=== PATIENT | male | born 1960 | race Caucasian/White ===

== ENCOUNTER 2021-04-08 01:35 | Emergency (ER) | payer MEDICAID, SELFPAY ==
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
[2021-04-08 02:04] VITALS: BP 159/80; PULSE 105; O2SAT 98; BMI 31.8
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
[2021-04-08 02:10] VITALS: BP 140/64; PULSE 91; RESP 18; TEMP 36.8; O2SAT 98
== END 2021-04-08 04:34 | disposition home or self-care (01) ==
PROVIDERS: Emergency Provider Internal Medicine; PCP Family Medicine
DX: Z04.89 Encounter for examination and observation for other specified reasons (principal); M79.642 Pain in left hand; M79.89 Other specified soft tissue disorders; R04.0 Epistaxis
CPT/HCPCS: 70450; 70486; 73120; 99284

== ENCOUNTER 2023-07-30 03:51 | Inpatient (IN) | payer OTHER, SELFPAY ==
[2023-07-30] VITALS (11 sets, daily range): BP systolic 94–143; BP diastolic 41–68; PULSE 57–73; RESP 16–20; TEMP 36.3–36.7; O2SAT 93–97; BMI 31.9
--- NOTE | ~2023-07-30 | CT_ITS ---
EXAMINATION: CT HEAD WITHOUT CONTRAST CT CERVICAL SPINE WITHOUT CONTRAST. CLINICAL INFORMATION: Trauma. Pain. COMPARISON: None available. TECHNIQUE: Contiguous axial imaging was performed through the head and cervical spine without intravenous administration of contrast. Sagittal and coronal reformatted images also This CT examination was performed using dose optimization techniques as appropriate, variously including the following: *Automated exposure control *Adjustment of mA and/or kV according to patient size (this includes techniques or standardized protocols for targeted exams where dose is matched to indication/reason for exam; i.e. extremities or head) *Use of iterative reconstruction technique DLP: 1036 mGy-cm FINDINGS: The lateral, third and fourth ventricles are normally outlined. The cortical sulci and basal cisterns are normally outlined as well. There is no acute territorial defect, hemorrhage or midline shift. The extra-axial spaces are unremarkable. Calvarium/scalp: Intact. There is right infraorbital/right cheek soft tissue swelling. Maxillofacial sinuses and mastoids: Clear as visualized. Cervical spine: The alignment is normal. There is moderate C4-C5 disc degenerative change and mild disc degenerative change throughout the remaining cervical spine with loss of disc space, endplate change and posterior osteophytes associated with mild to moderate diffuse facet osteoarthritic hypertrophic change with multilevel mild spinal canal and multilevel [id number] neuroforaminal narrowing. No fracture is seen. Soft tissues are unremarkable. The visualized upper lung sibley are clear. CT/CT cervical spine wo IV con IMPRESSION: 1. No acute intracranial abnormality. 2. No acute fracture or malalignment of the cervical spine. Multilevel degenerative changes of the cervical spine. 3. Right infraorbital/right cheek soft tissue swelling
--- NOTE | ~2023-07-30 | CT_ITS ---
EXAMINATION: CT HEAD WITHOUT CONTRAST CT CERVICAL SPINE WITHOUT CONTRAST. CLINICAL INFORMATION: Trauma. Pain. COMPARISON: None available. TECHNIQUE: Contiguous axial imaging was performed through the head and cervical spine without intravenous administration of contrast. Sagittal and coronal reformatted images also This CT examination was performed using dose optimization techniques as appropriate, variously including the following: *Automated exposure control *Adjustment of mA and/or kV according to patient size (this includes techniques or standardized protocols for targeted exams where dose is matched to indication/reason for exam; i.e. extremities or head) *Use of iterative reconstruction technique DLP: 1036 mGy-cm FINDINGS: The lateral, third and fourth ventricles are normally outlined. The cortical sulci and basal cisterns are normally outlined as well. There is no acute territorial defect, hemorrhage or midline shift. The extra-axial spaces are unremarkable. Calvarium/scalp: Intact. There is right infraorbital/right cheek soft tissue swelling. Maxillofacial sinuses and mastoids: Clear as visualized. Cervical spine: The alignment is normal. There is moderate C4-C5 disc degenerative change and mild disc degenerative change throughout the remaining cervical spine with loss of disc space, endplate change and posterior osteophytes associated with mild to moderate diffuse facet osteoarthritic hypertrophic change with multilevel mild spinal canal and multilevel [id number] neuroforaminal narrowing. No fracture is seen. Soft tissues are unremarkable. The visualized upper lung sibley are clear. CT/CT head/brain wo IV con IMPRESSION: 1. No acute intracranial abnormality. 2. No acute fracture or malalignment of the cervical spine. Multilevel degenerative changes of the cervical spine. 3. Right infraorbital/right cheek soft tissue swelling
--- NOTE | ~2023-07-30 | XR_ITS ---
EXAMINATION: XR HAND, RIGHT CLINICAL INFORMATION: Trauma. Pain. COMPARISON: None available. TECHNIQUE: PA, lateral, and oblique views of the right hand. FINDINGS: The bone mineralization is within normal limits. There is a displaced fracture through the proximal phalanx of the fifth digit. There appears to be bandaging along the proximal phalanx fifth digit. There is mild soft tissue swelling along the dorsum of the hand. XR/XR hand RT min 3V IMPRESSION: 1. Displaced fracture through the proximal phalanx of the fifth digit.
--- NOTE | ~2023-07-30 | FL_ITS ---
EXAMINATION: XR FLUOROSCOPY WITH IMAGES CLINICAL INFORMATION: Right hand ORIF COMPARISON: Right hand 07/30/2023 TECHNIQUE: Fluoroscopy Supervised By: Dr. Hernandez. Fluoroscopy Time: 57.74 seconds. Cumulative Dose: 1.1424 mGy. DAP: 0.0690 Gycm2. Images: 1. FINDINGS: Lateral view of the right hand demonstrate a K wire through the fifth finger of the right hand. Please see Dr. Hernandez's procedure note for full details. FL/FL guidance in OR IMPRESSION: Intraoperative fluoroscopic guidance was provided for ORIF of right fifth finger fracture.
--- NOTE | ~2023-07-30 | FL_ITS ---
EXAMINATION: XR FLUOROSCOPY WITH IMAGES CLINICAL INFORMATION: Right hand pinning. COMPARISON: None available. TECHNIQUE: Fluoroscopy Supervised By: Dr. Dowell. Fluoroscopy Time: 70.73 seconds. Cumulative Dose: 1.856 mGy. DAP: 0.112 Gycm2. Images: 12. FINDINGS: Pins are present through the fifth digit with a comminuted intra-articular fracture involving the proximal phalanx and the MCP joint. FL/FL guidance in OR IMPRESSION: Fluoroscopy and spot films provided during pinning of the fifth digit.
--- NOTE | 2023-07-30 04:06 | PC.NURSE ---
Dr. Mercedes to bedside.
[2023-07-30] MEDS: 0.9 % Sodium Chloride 1,000 ML 999 ML IV (04:10)
[2023-07-30 04:13] LABS: MANUAL DIFF FLAG NO
[2023-07-30 04:18] LABS: Basophils Absolute Auto 0.1 X10*3/uL (0.0-0.2); Basophils Percent Auto 0.6 % (0-2); Eosinophils Absolute Auto 0.2 X10*3/uL (0.0-0.4); Hemoglobin 13.2 g/dl (14.0-18.0); Imm Gran Abs Auto 0.04 X10*3/uL (0.00-0.03); Imm Gran Pct Auto 0.5 % (0.0-0.4); Lymphocytes Absolute Auto 2.7 X10*3/uL (1.2-4.9); Lymphocytes Percent Auto 33.8 % (20-40); Mean Corpuscular HGB Conc 36.7 g/dl (31.0-36.0); Mean Corpuscular Volume 87.2 fL (80.0-98.0); Monocytes Absolute Auto 0.6 X10*3/uL (0.1-1.2); Neutrophils Absolute Auto 4.4 x10*3/uL (2.0-8.3); Neutrophils Percent Auto 55.1 % (45-73); Platelet Count 112 X10*3/uL (160-400); Red Blood Count 4.13 X10*6/uL (4.60-5.80); Red Cell Distribution Width 15.5 % (11.0-16.0); White Blood Count 8.1 X10*3/uL (4.8-10.8)
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
--- NOTE | 2023-07-30 04:32 | PC.NURSE ---
pt reports last tetanus shot 2 years ago.
[2023-07-30 04:38] LABS: Alanine Aminotransferase 30 U/L (0-40); Albumin Level 3.7 g/dL (3.5-5.0); Alkaline Phosphatase 76 U/L (39-117); Anion Gap 15 (12-20); Aspartate Amino Transferase 43 U/L (5-37); Bilirubin Total 0.8 mg/dL (0.0-1.0); Blood Urea Nitrogen 10 mg/dL (9-16); Calcium 8.3 mg/dL (8.4-10.2); Carbon Dioxide 21 mmol/L (22-29); Chloride 98 mmol/L (96-108); Creatinine Clr Calc Pharmacy 136.1; Estimated Glomerular Filt Rate > 60; Glucose Random 107 mg/dL (60-115); Magnesium 1.9 mg/dL (1.6-2.6); Potassium 3.8 mmol/L (3.3-5.1); Sodium 130 mmol/L (135-145); Total Protein 6.7 g/dL (6.5-8.0)
[2023-07-30] MEDS: Piperacillin Sodium/Tazobactam 3.375 GM in 0.9 % Sodium Chloride 50 ML IV ×3 (04:54→22:39)
--- NOTE | 2023-07-30 04:56 | PC.NURSE ---
no blood cultures per md. ivf and abx infusing per mar. plan for surgical consult in AM. pt resting comfortably in stretcher. c-collar in place awaiting imaging results. resp even and unlabored. axox4. call aguilar within reach.
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
--- NOTE | 2023-07-30 07:44 | PC.NURSE ---
Pt cleaned and changed over to best of RNs ability.
[2023-07-30] MEDS: Morphine Sulfate 2 MG/ML CARTRIDGE 1 MG IVPUSH (07:50)
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
--- NOTE | 2023-07-30 08:00 | PC.NURSE ---
Pt denies daily alcohol use, denies any hx of alcohol withdrawals or seizures. Had few beers last night/ early this morning, unknown how many.
[2023-07-30] MEDS: Lactated Ringers 1,000 ML 100 ML IVCONT ×2 (08:15→16:17)
--- NOTE | 2023-07-30 10:36 | PC.NURSE ---
Pt significant other s number [phone] name is Shanelle
[2023-07-30] MEDS: oxyCODONE HCl Immed Release 5 MG TABLET PO (12:13)
--- NOTE | 2023-07-30 12:16 | PC.NURSE ---
Pt medicated per PRN APR for pain in right hand. Denies other new complaints
--- NOTE | 2023-07-30 12:52 | PC.NURSE ---
Report given to BEARING RING ASSEMBLER
--- NOTE | 2023-07-30 13:06 | P.CONAN_ITS ---
[facility] Active Problems Active Problems: All Active Problems Fracture of finger of right hand (Acute) Laceration (Acute) Family History Family history of problems with anesthesia: No Surgical History History of Problems with Anesthesia: No Social History Social History Alcohol intake: current Alcohol intake frequency: a few times a week Smoked in Last 30 Days: No Use of substances other than those prescribed or required for medical reasons: No Advance Directives: No Advance Directives Information Provided: No Meds Allergies Allergy/AdvReac Type Severity Reaction Status Date / Time No Known Allergies Allergy Verified 07/30/23 04:04 Active Medications: Current Medications Acetaminophen (Acetaminophen 325 Mg Tablet) 650 mg PO Q6H PRN PRN Reason: Pain, Mild (Pain Scale 1-3), fever or headache Lactated Ringer's (Lr) 1,000 mls @ 100 mls/hr IVCONT .Q10H [facility] Last Admin: 07/30/23 08:15 Dose: 100 mls/hr Magnesium Hydroxide (Milk Of Magnesia 30 Ml Oral.Susp) 30 ml PO DAILY PRN PRN Reason: Constipation Oxycodone HCl (Oxycodone Hcl Immed Release 5 Mg Tablet) 5 mg PO Q4H PRN PRN Reason: Pain, Moderate(Pain Scale 4-6) Last Admin: 07/30/23 12:13 Dose: 5 mg Sodium Chloride (0.9 % Sodium Chloride Flush 3 Ml Syringe) 3 ml IVFLUSH QSH[facility]HI [facility] Home Medications ?Medication ?Instructions ?Recorded ?Confirmed ?Last Taken ?Type amlodipine 5 mg tablet 5 mg PO DAILY 07/30/23 07/30/23 07/27/23 History aspirin 81 mg tablet,delayed 81 mg PO DAILY 07/30/23 07/30/23 07/27/23 History release fluoxetine 20 mg capsule 20 mg PO DAILY 07/30/23 07/30/23 07/27/23 History gabapentin 100 mg capsule 100 mg PO BID 07/30/23 07/30/23 07/27/23 History magnesium 200 mg tablet 200 mg PO DAILY 07/30/23 07/30/23 07/27/23 History milk thistle 150 mg capsule 300 mg PO DAILY 07/30/23 07/30/23 07/27/23 History multivitamin 1 tab PO DAILY 06/07/30/23 07/27/23 History vitamin B complex 1 cap PO DAILY PRN energy 07/30/23 07/30/23 07/27/23 History Exam Height,Weight and Vital Signs: Height 6 ft Weight 106.7 kg Last Vital Signs Temp 98.1 F 07/30/23 12:04 Pulse 60 07/30/23 12:04 Resp 18 07/30/23 12:04 BP 118/58 L 07/30/23 12:04 Pulse Ox 96 07/30/23 12:04 O2 Del Method Room Air 07/30/23 12:04 Pertinent Lab Results Pertinent Lab Results: oLaboratory Tests 07/30/23 04:09 WBC 8.1 RBC 4.13 L Hgb 13.2 L Hct 36.0 L MCV 87.2 MCH 32.0 MCHC 36.7 H RDW 15.5 Plt Count 112 L MPV 11.0 Immature Gran % (Auto) 0.5 H Neut % (Auto) 55.1 Lymph % (Auto) 33.8 [place] % (Auto) 8.0 Eos % (Auto) 2.0 Baso % (Auto) 0.6 Lymph # (Auto) 2.7 [place] # (Auto) 0.6 Eos # (Auto) 0.2 Baso # (Auto) 0.1 Abs Immat Gran (auto) 0.04 H Absolute Neuts (auto) 4.4 Absolute Nucleated RBC 0.000 Nucleated RBC % (auto) 0.0 Sodium 130 L Potassium 3.8 Chloride 98 Carbon Dioxide 21 L Anion Gap 15 BUN 10 Creatinine 0.71 Estim Creat Clear Calc 136.1 Estimated GFR > 60 Random Glucose 107 Calcium 8.3 L Magnesium 1.9 Total Bilirubin 0.8 AST 43 H ALT 30 Alkaline Phosphatase 76 Total Protein 6.7 Albumin 3.7 Airway Mallampati Class: II TM Dist: >3cm Neck ROM: Full Assessment and Plan Assessment Anesthesia Assessment: Anesthesia Plan Discussed and Chart Reviewed Final Anesthetic Review Family History of Problems with Anesthesia: No History of Problems with Anesthesia: No NPO: Yes ASA Class: II and Emergency Final Preanesthetic Review: No Changes in Pt Med Stat, Meds/Allgs Chart Reviewed, Consent Obtained/Reviewed and Anes Risks/Benef Reviewed Patient Risk: Intermediate Procedure Risk: Low Anesthetic Plan Anesthetic Plan: GA Disposition: Standard PACU
--- NOTE | 2023-07-30 13:06 | PC.NURSE ---
Pt sent to OR
--- NOTE | 2023-07-30 13:41 | MHC.SHP ---
Pre-Procedural Eval Section A - 24 Hr Update-Section A only Date of Service: 07/30/23 The patient is an INPATIENT: No Changes since office visit: No Cold of Flu in the past 2 weeks, No New Medical Problems, No Changes in Medication and No Patient answered all questions The patient has been examined within 24 hours of the surgical procedure. The History & Physical has been completed within 30 days and I have reviewed it.: Yes Section B - Complete if H&P > 30 days Chief Complaint: Right little finger open fracture Allergies: Allergies Allergy/AdvReac Type Severity Reaction Status Date / Time No Known Allergies Allergy Verified 07/30/23 04:04 Plan I have reviewed the history and physical and performed a pertinent physical examination on my patient. No changes have occurred unless specified. Time Spent With Patient Time: Total time managing care of this patient today ____ minutes.
--- NOTE | 2023-07-30 15:08 | P.BOP_ITS ---
Brief Operative Note Date of Service: 07/30/23 Pre-op diagnosis: open fracture right small finger proximal phalanx Post-op diagnosis: same Procedure: irrigation and debridement right small finger percutaneous pinning right small finger Implants: 0.45 k wire Surgeon: Balaji Hernandez MD Anesthesia: GETA and local Was an Suction Drum Drier Operator used for this Procedure?: Yes Suction Drum Drier Operator: Jeny Alfaro Estimated blood loss (mL): 25 IV fluids (mL): 750 Pathology: none sent Condition: stable Disposition: PACU
[2023-07-30] MEDS: 0.9 % Sodium Chloride Flush 3 ML SYRINGE IVFLUSH (16:18)
--- NOTE | 2023-07-30 16:19 | PHA.PROG ---
Admission Date/Time: July 30, 2023 08:05 Indication: Weight in k.7 kg Adjusted body weight in K.24 [place] body weight in K.6 Obesity Dosing Indication % IBW: Serum Creatinine - Last 168 Hours 07/30/23 04:09 Creatinine 0.71 Estimated CrCl and GFR - Last 168 Hours 07/30/23 04:09 Estim Creat Clear Calc 136.1 Estimated GFR > 60 Vancomycin Loading Dose: 2000 MG Current Vancomycin Dosing Regimen: 1500 MG Q12H Vancomycin Monitoring using AUC goal of 400 - 600 range with trough as surrogate marker: PREDICTED AUC 555 Date and Time for next Vancomycin Level to be drawn: 07/31/23 @ 1500 Pharmacist Comments on Vancomycin Plan: PATIENT OBESE, TOGGLED BETWEEN BOTH OBESE AND MODIFIED MODEL. Vancomycin dosing will take advantage of [employer] as a clinical decision support tool that uses Bayesian modeling to calculate individual patient's pharmacokinetic parameters and forecast the patient's drug concentration time course with the target goal AUC 24 range of 400 - 600 mg/L/hr.
[2023-07-30] MEDS: vancomycin/NS 2,000 MG/500 ML PLAST..BAG 250 MG IV (17:14)
[2023-07-30] MEDS: Gabapentin 100 MG CAPSULE PO (22:28)
[2023-07-31 03:16] VITALS: BP 169/74; PULSE 56; RESP 16; TEMP 36.2; O2SAT 96
[2023-07-31] MEDS: Piperacillin Sodium/Tazobactam 3.375 GM in 0.9 % Sodium Chloride 50 ML IV ×4 (05:01→22:53)
[2023-07-31] MEDS: Acetaminophen 325 MG TABLET 650 MG PO ×3 (05:35→19:24)
[2023-07-31] MEDS: vancomycin HCL 1,500 MG in 0.9 % Sodium Chloride 500 ML 333.33 MG IV (05:44)
[2023-07-31 05:57] LABS: MANUAL DIFF FLAG NO
[2023-07-31 06:10] LABS: Basophils Percent Auto 0.1 % (0-2); Eosinophils Percent Auto 0.1 % (0-4); Hematocrit 37.5 % (42.0-52.0); Imm Gran Abs Auto 0.03 X10*3/uL (0.00-0.03); Imm Gran Pct Auto 0.4 % (0.0-0.4); Lymphocytes Absolute Auto 0.7 X10*3/uL (1.2-4.9); Lymphocytes Percent Auto 10.5 % (20-40); Mean Corpuscular HGB Conc 34.7 g/dl (31.0-36.0); Mean Corpuscular Hemoglobin 30.7 pg (27.0-33.0); Mean Corpuscular Volume 88.7 fL (80.0-98.0); Mean Platelet Volume 11.6 fL (9.4-12.4); Monocytes Absolute Auto 0.6 X10*3/uL (0.1-1.2); Monocytes Percent Auto 8.5 % (2-11); Neutrophils Absolute Auto 5.6 x10*3/uL (2.0-8.3); Neutrophils Percent Auto 80.4 % (45-73); Red Blood Count 4.23 X10*6/uL (4.60-5.80); Red Cell Distribution Width 15.4 % (11.0-16.0)
[2023-07-31 06:11] LABS: Platelet Count 64 X10*3/uL (160-400)
[2023-07-31 06:18] LABS: Anion Gap 10 (12-20); Blood Urea Nitrogen 10 mg/dL (9-16); Calcium 8.6 mg/dL (8.4-10.2); Carbon Dioxide 25 mmol/L (22-29); Chloride 105 mmol/L (96-108); Creatinine Clr Calc Pharmacy 142.1; Estimated Glomerular Filt Rate > 60; Glucose Fasting 124 mg/dL (60-99); Potassium 4.4 mmol/L (3.3-5.1); Sodium 136 mmol/L (135-145)
[2023-07-31 07:41] VITALS: BP 138/64; PULSE 58; RESP 18; TEMP 36.1; O2SAT 96
[2023-07-31] MEDS: Magnesium Oxide 400 MG TABLET PO (08:25)
[2023-07-31] MEDS: amLODIPine Besylate 5 MG TABLET PO (08:25)
[2023-07-31] MEDS: Gabapentin 100 MG CAPSULE PO ×2 (08:25→19:27)
[2023-07-31] MEDS: Multivitamin TABLET 1 TAB PO (08:25)
[2023-07-31] MEDS: FLUoxetine HCl 20 MG CAPSULE PO (08:25)
[2023-07-31] MEDS: Lactated Ringers 1,000 ML 100 ML IVCONT ×2 (08:27→15:36)
--- NOTE | 2023-07-31 09:55 | PM.PNORT ---
Subjective Subjective Date of Service: 07/31/23 Interval history: POD1 s/p right little finger CRPP and I&D Patient is resting in bed comfortably No overnight events Pain is managed No additional complaints Physical Exam Vital Signs: Vital Signs: Last Vital Signs Temp 96.9 F 07/31/23 07:41 Pulse 58 07/31/23 07:41 Resp 18 07/31/23 07:41 BP 138/64 07/31/23 07:41 Pulse Ox 96 07/31/23 07:41 O2 Del Method Room Air 07/31/23 07:41 O2 Flow Rate 2 07/30/23 19:48 BMI result Body Mass Index 31.9 Const: General: cooperative, healthy appearing and no acute distress Resp: Effort & Inspection: normal respiratory effort and able to speak in complete sentences Cardio: Rate: regular rate Peripheral pulses: Peripheral pulses 2+ throughout GI: Palpation (GI): Soft to palpation Skin: Lesions: no lesions Rashes: no rashes Extrem: Other: right hand splint is c/d/i Procedures Date of Service Date of Service: 07/31/23 Progress Note: A&P Assessment and plan (1) Fracture of finger of right hand: Status: Acute Assessment and Plan: Elevate right hand keep splint c/d/i plan for return to OR tomorrow - NPO after midnight (2) Laceration: Status: Acute Time Spent With Patient Time: Total time managing care of this patient today ____ minutes. Quality Stroke Does the patient have a stroke diagnosis?: No VTE Prior VTE?: No VTE Risk Level:: Medical - moderate - high VTE Device Contraindication: N/A - Device Ordered VTE Drug Contraindication: N/A - Med Ordered
[2023-07-31 13:07] VITALS: O2SAT 95
--- NOTE | 2023-07-31 14:28 | MHC.CM.PN ---
Addendum entered by Saida Ghotra 07/31/23 14:40: CORRECTION: CAMILLE WHITTEN IS PTS PCP Original Note: PT REPORTS HE LIVES WITH HIS GIRLFRIEND AND IS INDEPENDENT AT BASELINE PT HAS NO DME AND NO SERVICES HE DOES NOT HAVE A HCP, HE DID ACCEPT THE INFORMATION AND DOCUMENT TO CONSIDER AT A LATER TIME PCP: MEAGAN HODGES DCP: HOME ? [facility] S[facility] WILL TRANSPORT
[2023-07-31 15:42] LABS: Vancomycin Random 9.4 mcg/mL (15-20)
--- NOTE | 2023-07-31 15:52 | HE.PHANOTE ---
RE [facility] Patients level came back this evening at 9.4. Increased dose to 1750 mg Q24H. Will get level for 07/31 @1500 after 2 doses to ensure sfatey vs efficacy. suspected AUC 470, trough 12.7
[2023-07-31 16:00] VITALS: BP 139/95; PULSE 93; RESP 14; TEMP 36.6; O2SAT 93
[2023-07-31] MEDS: vancomycin HCL 1,000 MG, vancomycin HCL 750 MG in 0.9 % Sodium Chloride 500 ML 267.5 MG IV (17:12)
[2023-07-31 19:24] VITALS: BP 163/73; PULSE 68; RESP 16; TEMP 36.5; O2SAT 95
--- NOTE | 2023-07-31 19:32 | PC.NURSE ---
Pt seen sitting on bed alert and oriented, c/o 5/10 right hand pain, + CMS, prn Tylenol 650 mg po requested by pt and given.
[2023-07-31] MEDS: Melatonin 3 MG TABLET 6 MG PO (23:43)
[2023-08-01] VITALS (13 sets, daily range): BP systolic 110–167; BP diastolic 53–75; PULSE 58–70; RESP 12–18; TEMP 36–36.8; O2SAT 92–100
[2023-08-01] MEDS: oxyCODONE HCl Immed Release 5 MG TABLET PO ×2 (00:51→07:45)
--- NOTE | 2023-08-01 03:06 | PC.NURSE ---
Pt seen on bed alert and oriented, pt requested for Melatonin for sleep, Dr. Rutledge was notified, med given with good effect.
[2023-08-01] MEDS: Piperacillin Sodium/Tazobactam 3.375 GM in 0.9 % Sodium Chloride 50 ML IV ×4 (04:43→22:40)
[2023-08-01] MEDS: Lactated Ringers 1,000 ML 100 ML IVCONT (04:47)
[2023-08-01] MEDS: vancomycin HCL 1,000 MG, vancomycin HCL 750 MG in 0.9 % Sodium Chloride 500 ML 267.5 MG IV (05:27)
[2023-08-01 07:25] LABS: Anion Gap 13 (12-20); Blood Urea Nitrogen 8 mg/dL (9-16); Calcium 8.6 mg/dL (8.4-10.2); Carbon Dioxide 23 mmol/L (22-29); Chloride 105 mmol/L (96-108); Creatinine Clr Calc Pharmacy 132.4; Estimated Glomerular Filt Rate > 60; Glucose Fasting 107 mg/dL (60-99); Sodium 137 mmol/L (135-145)
[2023-08-01] MEDS: FLUoxetine HCl 20 MG CAPSULE PO (07:43)
[2023-08-01] MEDS: Magnesium Oxide 400 MG TABLET PO (07:43)
[2023-08-01] MEDS: amLODIPine Besylate 5 MG TABLET PO (07:44)
[2023-08-01] MEDS: Gabapentin 100 MG CAPSULE PO ×2 (07:45→19:58)
[2023-08-01] MEDS: Multivitamin TABLET 1 TAB PO (07:45)
[2023-08-01] MEDS: 0.9 % Sodium Chloride Flush 3 ML SYRINGE IVFLUSH ×3 (07:46→19:58)
--- NOTE | 2023-08-01 08:00 | P.CONAN_ITS ---
HPI - Anesthesia Eval Consult details Narrative: i and d hand PMFSH Active Problems Active Problems: All Active Problems Fracture of finger of right hand (Acute) Laceration (Acute) Family History Family history of problems with anesthesia: No Surgical History History of Problems with Anesthesia: No Social History Social History Household Members: Significant Other Housing: House Do you presently have visiting nurse or other home services: No Alcohol intake: current Alcohol intake frequency: a few times a week Patient Tobacco Use Status: Never used Tobacco Smoked in Last 30 Days: No Use of substances other than those prescribed or required for medical reasons: No Currently Displaying Signs/Symptoms of Drug Intoxication Withdrawal: No Have you been hit, kicked, punched, or otherwise hurt by someone within the past year? If so, by whom?: No Do you feel safe in your current relationship?: Yes Is there a partner from a previous relationship who is making you feel unsafe now?: No Are you made to feel afraid or neglected: No Advance Directives: No Advance Directives Information Provided: No Do you have a plan to hurt others: No Plan Recently lost weight without trying: No Eating poorly because of decreased appetite: No Nutrition Risks: No Nutritional Risk Poor oral hygiene: No service: No Meds Allergies Allergy/AdvReac Type Severity Reaction Status Date / Time No Known Allergies Allergy Verified 07/30/23 04:04 Active Medications: Current Medications Acetaminophen (Acetaminophen 325 Mg Tablet) 650 mg PO Q6H PRN PRN Reason: Pain, Mild (Pain Scale 1-3), fever or headache Last Admin: 07/31/23 19:24 Dose: 650 mg Amlodipine Besylate (Amlodipine Besylate 5 Mg Tablet) 5 mg PO DAILY [facility]; Protocol Last Admin: 08/01/23 07:44 Dose: 5 mg Aspirin (Aspirin Enteric Coated 81 Mg Tablet.Dr) 81 mg PO DAILY [facility] Last Admin: 08/01/23 07:44 Dose: Not Given Fluoxetine HCl (Fluoxetine Hcl 20 Mg Capsule) 20 mg PO DAILY [facility] Last Admin: 08/01/23 07:43 Dose: 20 mg Gabapentin (Gabapentin 100 Mg Capsule) 100 mg PO BID [facility] Last Admin: 08/01/23 07:45 Dose: 100 mg Lactated Ringer's (Lr) 1,000 mls @ 100 mls/hr IVCONT .Q10H [facility] Last Admin: 08/01/23 04:47 Dose: 100 mls/hr Piperacillin Sod/Tazobactam (Sod 3.375 gm/ Sodium Chloride) 50 mls @ 100 mls/hr IV Q6H [facility] Last Infusion: 08/01/23 05:20 Dose: Infused Vancomycin HCl 1,000 mg/Vancomycin HCl 750 mg/ Sodium Chloride 535 mls @ 267.5 mls/hr IV Q12H [facility] Last Infusion: 08/01/23 07:35 Dose: Infused Magnesium Hydroxide (Milk Of Magnesia 30 Ml Oral.Susp) 30 ml PO DAILY PRN PRN Reason: Constipation Magnesium Oxide (Magnesium Oxide 400 Mg Tablet) 400 mg PO DAILY [facility] Last Admin: 08/01/23 07:43 Dose: 400 mg Melatonin (Melatonin 3 Mg Tablet) 6 mg PO BEDTIME PRN PRN Reason: Insomnia Last Admin: 07/31/23 23:43 Dose: 6 mg Multivitamins/Vitamin C (Multivitamin Tablet) 1 tab PO DAILY [facility] Last Admin: 08/01/23 07:45 Dose: 1 tab Oxycodone HCl (Oxycodone Hcl Immed Release 5 Mg Tablet) 5 mg PO Q4H PRN PRN Reason: Pain, Moderate(Pain Scale 4-6) Last Admin: 08/01/23 07:45 Dose: 5 mg Pharmacy Consult (Consult Rx Vancomycin Dosing) 1 each MISCELLANE DAILY PRN PRN Reason: Consult order Sodium Chloride (0.9 % Sodium Chloride Flush 3 Ml Syringe) 3 ml IVFLUSH QSHIFT [facility] Last Admin: 08/01/23 07:46 Dose: 3 ml Home Medications ?Medication ?Instructions ?Recorded ?Confirmed ?Last Taken ?Type amlodipine 5 mg tablet 5 mg PO DAILY 07/30/23 07/30/23 07/27/23 History aspirin 81 mg tablet,delayed 81 mg PO DAILY 07/30/23 07/30/23 07/27/23 History release fluoxetine 20 mg capsule 20 mg PO DAILY 07/30/23 07/30/23 07/27/23 History gabapentin 100 mg capsule 100 mg PO BID 07/30/23 07/30/23 07/27/23 History magnesium 200 mg tablet 200 mg PO DAILY 07/30/23 07/30/23 07/27/23 History milk thistle 150 mg capsule 300 mg PO DAILY 07/30/23 07/30/23 07/27/23 History multivitamin 1 tab PO DAILY 07/30/23 07/30/23 07/27/23 History vitamin B complex 1 cap PO DAILY PRN energy 07/30/23 07/30/23 07/27/23 History Exam Height,Weight and Vital Signs: Height 6 ft Weight 106.7 kg Last Vital Signs Temp 97.5 F 08/01/23 07:16 Pulse 60 08/01/23 07:16 Resp 16 08/01/23 07:16 BP 167/72 H 08/01/23 07:44 Pulse Ox 95 08/01/23 07:16 O2 Del Method Room Air 08/01/23 07:16 O2 Flow Rate 2 07/30/23 19:48 Oxygen Flow Rate 2 07/31/23 13:07 Pertinent Lab Results Pertinent Lab Results: Laboratory Tests 07/30/23 07/31/23 07/31/23 04:09 05:47 14:53 WBC 8.1 7.0 RBC 4.13 L 4.23 L Hgb 13.2 L 13.0 L Hct 36.0 L 37.5 L MCV 87.2 88.7 MCH 32.0 30.7 MCHC 36.7 H 34.7 RDW 15.5 15.4 Plt Count 112 L 64 L D MPV 11.0 11.6 Immature Gran % (Auto) 0.5 H 0.4 Neut % (Auto) 55.1 80.4 H Lymph % (Auto) 33.8 10.5 L Centre % (Auto) 8.0 8.5 Eos % (Auto) 2.0 0.1 Baso % (Auto) 0.6 0.1 Lymph # (Auto) 2.7 0.7 L Centre # (Auto) 0.6 0.6 Eos # (Auto) 0.2 0.0 Baso # (Auto) 0.1 0.0 Abs Immat Gran (auto) 0.04 H 0.03 Absolute Neuts (auto) 4.4 5.6 Absolute Nucleated RBC 0.000 0.000 Nucleated RBC % (auto) 0.0 0.0 Hold Purple Top Sodium 130 L 136 Potassium 3.8 4.4 Chloride 98 105 Carbon Dioxide 21 L 25 Anion Gap 15 10 L BUN 10 10 Creatinine 0.71 0.68 Estim Creat Clear Calc 136.1 142.1 Estimated GFR > 60 > 60 Random Glucose 107 Fasting Glucose 124 H Calcium 8.3 L 8.6 Magnesium 1.9 Total Bilirubin 0.8 AST 43 H ALT 30 Alkaline Phosphatase 76 Total Protein 6.7 Albumin 3.7 Random Vancomycin 9.4 L 07/31/ 05:40 WBC RBC Hgb Hct MCV MCH MCHC RDW Plt Count MPV Immature Gran % (Auto) Neut % (Auto) Lymph % (Auto) Centre % (Auto) Eos % (Auto) Baso % (Auto) Lymph # (Auto) Centre # (Auto) Eos # (Auto) Baso # (Auto) Abs Immat Gran (auto) Absolute Neuts (auto) Absolute Nucleated RBC Nucleated RBC % (auto) Hold Purple Top SEE NOTE Sodium 137 Potassium 4.0 Chloride 105 Carbon Dioxide 23 Anion Gap 13 BUN 8 L Creatinine 0.73 Estim Creat Clear Calc 132.4 Estimated GFR > 60 Random Glucose Fasting Glucose 107 H Calcium 8.6 Magnesium Total Bilirubin AST ALT Alkaline Phosphatase Total Protein Albumin Random Vancomycin Airway Mallampati Class: II TM Dist: >3cm Neck ROM: Full Heart: rrr Lungs: cta Assessment and Plan Final Anesthetic Review Family History of Problems with Anesthesia: No History of Problems with Anesthesia: No NPO: Yes ASA Class: II Final Preanesthetic Review: No Changes in Pt Med Stat, Meds/Allgs Chart Marleen valdez, Consent Obtained/Reviewed and Anes Risks/Benef Reviewed Patient Risk: Low Procedure Risk: Low Anesthetic Plan Anesthetic Plan: GA Disposition: Standard PACU
--- NOTE | 2023-08-01 08:38 | MHC.SHP ---
Pre-Procedural Eval Section A - 24 Hr Update-Section A only Date of Service: 08/01/23 The patient is an INPATIENT: No Changes since office visit: No Cold of Flu in the past 2 weeks, No New Medical Problems, No Changes in Medication and No Patient answered all questions The patient has been examined within 24 hours of the surgical procedure. The History & Physical has been completed within 30 days and I have reviewed it.: Yes Section B - Complete if H&P > 30 days Chief Complaint: Right little finger open fracture Allergies: Allergies Allergy/AdvReac Type Severity Reaction Status Date / Time No Known Allergies Allergy Verified 07/30/23 04:04 Plan I have reviewed the history and physical and performed a pertinent physical examination on my patient. No changes have occurred unless specified. Time Spent With Patient Time: Total time managing care of this patient today ____ minutes.
--- NOTE | 2023-08-01 08:39 | P.OP_ITS ---
Operative Note Operative Note Date of Service: 08/01/23 Narrative: Operative Note Narrative: Preop diagnosis: 1. Right small finger open proximal phalanx fracture status post I and D and ORIF with gross contamination Postop diagnosis: Same Procedure: 1. Right small finger removal of implants/K-wire times 1 2. Right small finger I and D open comminuted proximal phalanx fracture 3. Right small finger proximal phalanx fracture open reduction internal fixation 4. Right small finger closure of wound, 4 cm 5. Right ulnar nerve block Surgeon: Yvette Dowell MD Anesthesia: General Anesthesia Findings: No gross purulence. A significantly comminuted fracture of the base and shaft of the right small finger proximal phalanx. Significant soft tissue wound involving the 4th web space and the ulnar base of the small finger. Implants: 0.045 X1 removed Implants: 0.045 K-wires x2 Tourniquet time: 0 minutes EBL: 5.0 ml Specimen: Wound cultures taken Drains: None Complications: None Disposition: Brought to the recovery room in stable condition Plan: Admit back to floor for IV antibiotics. Anticipate discharge tomorrow, on oral antibiotics ID consult to help us decide which oral antibiotics, as significant contamination with mud and dirt in the wound and at the fracture site. Follow-up early next week for a wound check, radiographs and to check cultures. Care should be taken to assure that the K-wires are not accidentally pulled out. Again this patient had gross contamination with dirt not only in the wound but impacted into the bony fracture site. He will need close wound follow-up. Because of the contamination it is likely that these K-wires will need to stay in longer than 4 weeks. Hopefully we can remove them by about 6 weeks, if radiographic evidence of interval bony healing. He has not a smoker or a diabetic. Nursing can go ahead clean and perform daily dressing changes as needed on the elbow wound and his numerous abrasions. Indications: The patient is a 62 year old man with a right small finger open proximal phalanx fracture with gross contamination with dirt, status post I and D and ORIF with Dr. Hernandez 2 days ago, back for repeat I and D and ORIF. . The risks and benefits of operative treatment, including but not limited to risk of damage to blood vessels, nerves, tendons, infection, recurrence, persistent pain or numbness, incomplete resolution of preoperative symptoms, or need for further surgery were discussed with the patient and they wished to proceed with surgery. Procedure: Once consent was obtained patient was brought back to the operating suite and placed in the operating table in a supine position. . Perioperative antibiotics and anesthesia was administered by the anesthesia team. A tourniquet was applied to the proximal aspect of the right upper extremity and the limb was prepped and draped in a standard surgical fashion. The tourniquet was not inflated. The FluoroScan was used during the case to assess fracture reduction and position of all implants. The longitudinal K-wire was 1st removed from the length of the small finger and placed on the back table. Sutures were removed, and the wound and fracture were evaluated. This is a significantly comminuted fracture of the shaft and base including the articular surface of the right small finger proximal phalanx. A small curette was used to again debride our fracture site. I then copiously irrigated both the fracture site the wound in general with normal saline. I did use an Angiocath on a 10 mL syringe to facilitate irrigation of the bony fragments and the canal. I then performed an open reduction of our fracture. I passed the 1st 0.045 K-wire through the ulnar base fragment of the proximal phalanx. Using the FluoroScan to guide our reduction and placement of this K-wire, the K-wire was then adv anced across the fracture site and down the shaft of the proximal phalanx to just proximal to the distal articular surface. Once satisfied with our reduction and placement of this K-wire, a 2nd 0.045 K-wire was placed through the radial base of the proximal phalanx. This was then similarly advanced distally across our comminuted fracture site and into the shaft of the proximal phalanx. We obtain some good improvement in the reduction of this highly comminuted proximal phalanx fracture. Small finger was also assessed clinically and found to not have any appreciable rotational or angular malalignment. At this point the pins were bent cut short had pin caps applied. Final radiographs were obtained. The wound was again irrigated with normal saline. The skin edges were reapproximated with 4-0 Prolene suture. This was a fairly complex skin tear extending from the dorsal ulnar base of the small finger across the 4th webspace extending both proximally over the A1 stephen and also extending as a Y type laceration at about the palmar digital crease. The total length was approximately 4 cm. An ulnar nerve block was performed by infiltrating about the ulnar nerve at the wrist with some 0.5% plain ropivacaine for postop pain control, a sterile dressing and a dorsal blocking splint extending from the tips of the small, ring and middle fingers to the dorsal forearm was placed. The patient appears to have tolerated the procedure well and with no complications. All digits were well vascularized conclusion of the case. Please also note that we cleaned his abrasions, which were multiple on this extremity including at the elbow. We then provided a separate clean dressing to be extensor surface of the elbow.
--- NOTE | 2023-08-01 09:01 | HO.POSTANES ---
Post Anesthesia Evaluation Post Anesthesia Evaluation Date of Service: 08/01/23 Vital Signs: Vital Signs Temp Pulse Resp BP Pulse Ox O2 Del Method 08/01/23 08:04 97.5 F 62 16 162/73 H 95 Room Air 08/01/23 07:44 167/72 H 08/01/23 07:16 97.5 F 60 16 167/72 H 95 Room Air 08/01/23 03:32 97.0 F 62 16 161/74 H 97 Room Air Anesthesia: General LMA Mental Status: Awake Pain Control: Satisfactory Nausea/Vomiting: None Hydration: Adequate Anesthesia-Related Issues: No Anes. Related Issues
--- NOTE | 2023-08-01 10:42 | PM.DS ---
DS: Providers Provider Date of Service: 08/03/23 Date of admission: 07/30/23 08:05 Primary care physician: Radha Walden MD Consults: 08/01/23 08:31 Consult to Infectious Diseases Routine Consulting Provider: [facility] Reason for consultation: open fracture right little finger extremely cpntaminated with dirt DS: Diagnosis Discharge Diagnosis (1) Fracture of finger of right hand: Status: Acute (2) Laceration: Status: Acute DS: Summary Hospital Course Hospital Course: The patient underwent a successful lavage of open fracture with laceration closure and CRPP of the little finger, they were transferred to PACU and then to the floor to recover. During their stay, their vitals were stable, afebrile at 97.5. Infectious disease consult was placed for appropriate antibiotics and was transitioned to PO Doxycycline and Augmentin for discharge per ID recommendation. Prior to discharge, their dressing and splint was clean dry and intact, and the plan was to be discharged home with out patient followup. Time Attestation Discharge Coordination Time (in mins): 30 Quality: Safe Use of Opioids Does Pt have an Active Cancer Diagnosis on the Problem List?: No Quality: Stroke Does the patient have a stroke diagnosis?: No Physical Exam Vital Signs: Vital Signs: Last Vital Signs Temp 97.3 F 08/01/23 10:40 Pulse 70 08/01/23 10:40 Resp 12 08/01/23 10:40 BP 134/69 08/01/23 10:40 Pulse Ox 97 08/01/23 10:40 O2 Del Method Simple Mask 08/01/23 10:40 O2 Flow Rate 4 08/01/23 10:40 Oxygen Flow Rate 2 07/31/23 13:07 BMI result Body Mass Index 31.9 Const: General: cooperative, healthy appearing and no acute distress Resp: Effort & Inspection: normal respiratory effort and able to speak in complete sentences Cardio: Rate: regular rate Peripheral pulses: Peripheral pulses 2+ throughout GI: Palpation (GI): Soft to palpation Skin: Lesions: no lesions Rashes: no rashes Extrem: Other: Right hand splint is c/d/i. Capillary refill is brisk. DS: Data Data Completed and Pending Labs on day of discharge: Laboratory Results - last 24 hr 07/31/23 08/01/23 14:53 05:40 Hold Purple Top SEE NOTE Sodium 137 Potassium 4.0 Chloride 105 Carbon Dioxide 23 Anion Gap 13 BUN 8 L Creatinine 0.73 Estim Creat Clear Calc 132.4 Estimated GFR > 60 Fasting Glucose 107 H Calcium 8.6 Random Vancomycin 9.4 L Discharge Plan Discharge Anticipated Discharge Date/Time: 08/02/23 13:39 Patient Disposition: Home Health Service Discharge Diagnosis: s/p little finger open fracture with gross contamination Referrals: Radha Walden MD [Primary Care Provider] - 1 Week Yvette Dowell MD [Physician] - 08/09/23 2:45 pm (08/09/23 at 2:45am) Discharge Medications: New acetaminophen 325 mg Tablet 650 mg PO Q6H PRN (Reason: Pain, Mild (Pain Scale 1-3), fever or headache) 30 Days Qty: 240 0RF oxycodone 5 mg Tablet 5 mg PO Q4H PRN (Reason: Pain, Moderate(Pain Scale 4-6)) 7 Days Qty: 42 0RF Rx Instructions: Partial Fill upon patient request. amoxicillin-pot clavulanate [Augmentin] 500-125 mg tablet 1 tab PO Q12H 14 Days Qty: 28 0RF doxycycline hyclate 100 mg tablet 100 mg PO BID 14 Days Qty: 28 0RF Continued multivitamin Tablet 1 tab PO DAILY amlodipine 5 mg tablet 5 mg PO DAILY aspirin 81 mg Tablet,Delayed Release (Dr/Ec) 81 mg PO DAILY milk thistle 150 mg Capsule 300 mg PO DAILY Rx Instructions: give with meal/snack gabapentin 100 mg capsule 100 mg PO BID fluoxetine 20 mg capsule 20 mg PO DAILY vitamin B complex Capsule 1 cap PO DAILY PRN (Reason: energy) magnesium 200 mg Tablet 200 mg PO DAILY Discharge Orders: Discharge Order (Routine); Ordered 08/03/23 Ordered By: Jeny Alfaro Diet: Advance to usual diet Activity on Discharge: Use Splints or Immobilizers Stand Alone Forms: Patient Portal Discharge page Print Language: Tajik Care Plan Goals: little finger open fracture with deep laceration and contamination Health Concerns: none Plan of Treatment: Keep splint clean, dry, and intact Elevate throughout the day No lifting Perform fist/finger exercises throughout the day Do not bathe or shower--keep splint dry Take Percocet 5/325mg tabs 1 tab by mouth every 4-6 hours as needed Augmentin and doxycycline by mouth with food twice a day for 14 days Call [facility] orthopedics with any questions or concerns. Follow up with orthopedics in 7-10 days post op Assessment: stable for discharge
[2023-08-01 15:39] LABS: Vancomycin Random 11.6 mcg/mL (15-20)
--- NOTE | 2023-08-01 16:25 | P.CNID_ITS ---
History of Present Illness Data of Consult Service Date: 08/01/23 Requesting physician: Jeny Alfaro Primary Care Provider: Radha Walden MD [facility] Reason for consult: open fracture right fifth finger,prox phalanx ,gross contamination He presents after leaving bar at 2am on 07/29. He reports falling and denies contact with anyones mouth through fist. He has cultures taken at time of surgery. He has no fever or chills or immune suppression known. Review of Systems 2 Review of Systems: Yes all other systems are reviewed and are negative [facility] Family History Family history: reviewed and not pertinent Social History Social History Household Members: Significant Other Housing: House Do you presently have visiting nurse or other home services: No Alcohol intake: current Alcohol intake frequency: holidays/special occasions only Patient Tobacco Use Status: Never used Tobacco Second Hand Smoke Exposure: No service: No Meds Allergies Allergy/AdvReac Type Severity Reaction Status Date / Time No Known Allergies Allergy Verified 07/30/23 04:04 Active Medications: Current Medications Acetaminophen (Acetaminophen 325 Mg Tablet) 650 mg PO Q6H PRN PRN Reason: Pain, Mild (Pain Scale 1-3), fever or headache Last Admin: 07/31/23 19:24 Dose: 650 mg Amlodipine Besylate (Amlodipine Besylate 5 Mg Tablet) 5 mg PO DAILY [facility]; Protocol Last Admin: 08/01/23 07:44 Dose: 5 mg Aspirin (Aspirin Enteric Coated 81 Mg Tablet.Dr) 81 mg PO DAILY [facility] Last Admin: 08/01/23 07:44 Dose: Not Given Fluoxetine HCl (Fluoxetine Hcl 20 Mg Capsule) 20 mg PO DAILY [facility] Last Admin: 08/01/23 07:43 Dose: 20 mg Gabapentin (Gabapentin 100 Mg Capsule) 100 mg PO BID [facility] Last Admin: 08/01/23 07:45 Dose: 100 mg Piperacillin Sod/Tazobactam (Sod 3.375 gm/ Sodium Chloride) 50 mls @ 100 mls/hr IV Q6H [facility] Last Infusion: 08/01/23 12:29 Dose: Infused Vancomycin HCl 1,250 mg/ (Sodium Chloride) 250 mls @ 166.667 mls/hr IV Q8H [facility] Magnesium Hydroxide (Milk Of Magnesia 30 Ml Oral.Susp) 30 ml PO DAILY PRN PRN Reason: Constipation Magnesium Oxide (Magnesium Oxide 400 Mg Tablet) 400 mg PO DAILY [facility] Last Admin: 08/01/23 07:43 Dose: 400 mg Melatonin (Melatonin 3 Mg Tablet) 6 mg PO BEDTIME PRN PRN Reason: Insomnia Last Admin: 07/31/23 23:43 Dose: 6 mg Multivitamins/Vitamin C (Multivitamin Tablet) 1 tab PO DAILY [facility] Last Admin: 08/01/23 07:45 Dose: 1 tab Oxycodone HCl (Oxycodone Hcl Immed Release 5 Mg Tablet) 5 mg PO Q4H PRN PRN Reason: Pain, Moderate(Pain Scale 4-6) Last Admin: 08/01/23 07:45 Dose: 5 mg Pharmacy Consult (Consult Rx Vancomycin Dosing) 1 each MISCELLANE DAILY PRN PRN Reason: Consult order Sodium Chloride (0.9 % Sodium Chloride Flush 3 Ml Syringe) 3 ml IVFLUSH QSHIFT [facility] Last Admin: 08/01/23 15:55 Dose: 3 ml Home Medications ?Medication ?Instructions ?Recorded ?Confirmed ?Last Taken ?Type amlodipine 5 mg tablet 5 mg PO DAILY 07/30/23 07/30/23 07/27/23 History aspirin 81 mg tablet,delayed 81 mg PO DAILY 07/30/23 07/30/23 07/27/23 History release fluoxetine 20 mg capsule 20 mg PO DAILY 07/30/23 07/30/23 07/27/23 History gabapentin 100 mg capsule 100 mg PO BID 07/30/23 07/30/23 07/27/23 History magnesium 200 mg tablet 200 mg PO DAILY 07/30/23 07/30/23 07/27/23 History milk thistle 150 mg capsule 300 mg PO DAILY 07/30/23 07/30/23 07/27/23 History multivitamin 1 tab PO DAILY 07/30/23 07/30/23 07/27/23 History vitamin B complex 1 cap PO DAILY PRN energy 07/30/23 07/30/23 07/27/23 History Physical Exam 2 Vital Signs: Vital Signs: Last Vital Signs Temp 97.2 F 08/01/23 15:26 Pulse 69 08/01/23 15:26 Resp 16 08/01/23 15:26 BP 129/60 08/01/23 15:26 Pulse Ox 94 08/01/23 15:26 O2 Del Method Room Air 08/01/23 15:26 O2 Flow Rate 3 08/01/23 11:18 Oxygen Flow Rate 2 07/31/23 13:07 BMI result Body Mass Index 31.9 Const: General: cooperative HEENT: Head: Yes normal to inspection Face and sinus: Yes normal facial exam Mouth: Normal oral and palatal mucosa present Teeth and gingiva: d entition normal Eyes: General: appearance normal, both eyes and all related structures P upils: Equal, round and reactive pupils present Resp: Effort & Inspection: normal respiratory effort Cardio: Rate: regular rate Rhythm: regular rhythm GI: Palpation (GI): Soft to palpation and nontender : General: Yes no CVA tenderness Back/Spine/Pelvis: Back: no CVA tenderness Skin: General skin exam: no rashes or lesions noted Neuro: General: moves all extremities Cranial nerves: Yes Equal, round and reactive pupils present Extrem: Other: wrapped right hand Psych: Appearance: grossly normal Results Labs 07/31/23 05:47 08/01/23 05:40 Labs: BMP 08/01/23 05:40 Sodium 137 Potassium 4.0 Chloride 105 Carbon Dioxide 23 BUN 8 L Creatinine 0.73 Calcium 8.6 Microbiology Microbiology Results: Microbiology 08/01/23 09:15 Finger Right Little Gram Stain - Final Assessment and Plan (1) Fracture of finger of right hand: Status: Acute He has fracture finger with gross contamination. Organisms now usually just show skin contamination. Organisms causing infection include MRSA or gram negative such as Pseudomonas or clostridia from spores in soil,rarely fungus. (2) Laceration: Status: Acute Plan Continue Vancomycin and piperacillin/tazobactam protect against above. He will receive at least three days IV therapy and either IV or po antibiotics (vanco/zosyn or augmentin/doxycycline)depending on appearance total 7-10 days. Tetanus shot as doing. Since not known to have mouth contact on hand (punching) would not give HIV prophylaxis but can check anyway for HIV and Hepatitis C at one point
[2023-08-01] MEDS: vancomycin HCL 1,250 MG in 0.9 % Sodium Chloride 250 ML 166.67 MG IV (17:57)
[2023-08-02] MEDS: vancomycin HCL 1,250 MG in 0.9 % Sodium Chloride 250 ML 166.67 MG IV ×2 (01:26→09:18)
[2023-08-02] MEDS: Melatonin 3 MG TABLET 6 MG PO ×2 (01:36→21:47)
[2023-08-02 04:00] VITALS: BP 165/77; PULSE 57; RESP 18; TEMP 36.2; O2SAT 94
[2023-08-02] MEDS: Piperacillin Sodium/Tazobactam 3.375 GM in 0.9 % Sodium Chloride 50 ML IV ×3 (04:40→16:17)
[2023-08-02 07:17] VITALS: BP 131/63; PULSE 57; RESP 18; TEMP 36.2; O2SAT 95
--- NOTE | 2023-08-02 07:35 | PM.PNORT ---
Subjective Subjective Date of Service: 08/02/23 Interval history: POD2 s/p right little finger CRPP and I&D Patient is resting in bed comfortably No overnight events Pain is managed No additional complaints Physical Exam Vital Signs: Vital Signs: Last Vital Signs Temp 97.2 F 08/02/23 07:17 Pulse 57 08/02/23 07:17 Resp 18 08/02/23 07:17 BP 131/63 08/02/23 07:17 Pulse Ox 95 08/02/23 07:17 O2 Del Method Room Air 08/02/23 07:17 O2 Flow Rate 3 08/01/23 11:18 Oxygen Flow Rate 2 07/31/23 13:07 BMI result Body Mass Index 31.9 Const: General: cooperative, healthy appearing and no acute distress Resp: Effort & Inspection: normal respiratory effort and able to speak in complete sentences Cardio: Rate: regular rate Peripheral pulses: Peripheral pulses 2+ throughout GI: Palpation (GI): Soft to palpation Skin: Lesions: no lesions Rashes: no rashes Extrem: Other: Right hand splint is c/d/i. Capillary refill is brisk. Procedures Date of Service Date of Service: 08/02/23 Progress Note: A&P Assessment and plan (1) Fracture of finger of right hand: Status: Acute Assessment and Plan: Elevate right hand keep splint c/d/i continue IV abx switch to PO abx tomorrow anticipate d/c tomorrow with out patient followup (2) Laceration: Status: Acute Time Spent With Patient Time: Total time managing care of this patient today ____ minutes. Quality Stroke Does the patient have a stroke diagnosis?: No VTE Prior VTE?: No VTE Risk Level:: Medical - moderate - high VTE Device Contraindication: N/A - Device Ordered VTE Drug Contraindication: N/A - Med Ordered
[2023-08-02 09:02] LABS: Anion Gap 12 (12-20); Blood Urea Nitrogen 9 mg/dL (9-16); Calcium 8.9 mg/dL (8.4-10.2); Carbon Dioxide 24 mmol/L (22-29); Chloride 105 mmol/L (96-108); Creatinine Clr Calc Pharmacy 144.2; Estimated Glomerular Filt Rate > 60; Glucose Fasting 124 mg/dL (60-99); Sodium 137 mmol/L (135-145)
[2023-08-02 09:18] VITALS: BP 131/63
[2023-08-02] MEDS: amLODIPine Besylate 5 MG TABLET PO (09:18)
[2023-08-02] MEDS: Aspirin Enteric Coated 81 MG TABLET.DR PO (09:18)
[2023-08-02] MEDS: 0.9 % Sodium Chloride Flush 3 ML SYRINGE IVFLUSH ×2 (09:18→16:17)
[2023-08-02] MEDS: FLUoxetine HCl 20 MG CAPSULE PO (09:18)
[2023-08-02] MEDS: Gabapentin 100 MG CAPSULE PO ×2 (09:18→21:47)
[2023-08-02] MEDS: Magnesium Oxide 400 MG TABLET PO (09:19)
[2023-08-02] MEDS: Multivitamin TABLET 1 TAB PO (09:19)
[2023-08-02] MEDS: oxyCODONE HCl Immed Release 5 MG TABLET PO (11:05)
--- NOTE | 2023-08-02 14:07 | HO.POSTANES ---
Post Anesthesia Evaluation Post Anesthesia Evaluation Date of Service: 08/01/23 Vital Signs: Vital Signs Temp Pulse Resp BP Pulse Ox O2 Del Method 08/02/23 09:18 131/63 08/02/23 08:03 Room Air 08/02/23 07:17 97.2 F 57 18 131/63 95 Room Air 08/02/23 04:00 97.2 F 57 18 165/77 H 94 Room Air Anesthesia: General Mental Status: Awake Pain Control: Satisfactory Nausea/Vomiting: None Hydration: Adequate Anesthesia-Related Issues: No Anes. Related Issues
[2023-08-02 15:38] VITALS: BP 152/67; PULSE 57; RESP 18; TEMP 36.3; O2SAT 96
[2023-08-02 16:07] LABS: Vancomycin Trough 23.5 mcg/mL (10.0-20.0)
[2023-08-02] MEDS: Acetaminophen 325 MG TABLET 650 MG PO (16:22)
[2023-08-02 19:34] VITALS: BP 131/61; PULSE 56; RESP 16; TEMP 36.4; O2SAT 95
[2023-08-03] MEDS: Piperacillin Sodium/Tazobactam 3.375 GM in 0.9 % Sodium Chloride 50 ML IV ×2 (00:41→06:08)
[2023-08-03] MEDS: vancomycin HCL 1,250 MG in 0.9 % Sodium Chloride 250 ML 166.67 MG IV (00:42)
[2023-08-03] MEDS: oxyCODONE HCl Immed Release 5 MG TABLET PO (00:46)
[2023-08-03 04:24] VITALS: BP 132/78; PULSE 77; RESP 15; TEMP 37; O2SAT 96
--- NOTE | 2023-08-03 05:49 | PC.NURSE ---
no new events overnight. ambulating independently, refusing assistance and bed alarms, patient scores as a high fall risk d/t recent fall prior to admission. cast/dressing CDI, + CMS to affected extremity, able to move fingers, warm with a normal brachial pulse. patient tolerating IV antibiotics without difficulty. scattered bruising and cuts throughout body r/t fall prior to admission. medicated for pain x1 overnight. all needs met, call aguilar within reach.
[2023-08-03 07:00] LABS: Anion Gap 14 (12-20); Blood Urea Nitrogen 23 mg/dL (9-16); Carbon Dioxide 24 mmol/L (22-29); Chloride 103 mmol/L (96-108); Creatinine Clr Calc Pharmacy 49.5; Estimated Glomerular Filt Rate 35; Glucose Fasting 110 mg/dL (60-99); Potassium 4.6 mmol/L (3.3-5.1); Sodium 136 mmol/L (135-145)
[2023-08-03 07:27] VITALS: BP 137/63; PULSE 67; RESP 16; TEMP 37.7; O2SAT 92
[2023-08-03 08:00] VITALS: O2SAT 94
[2023-08-03 08:30] VITALS: BP 136/64
[2023-08-03] MEDS: Aspirin Enteric Coated 81 MG TABLET.DR PO (08:30)
[2023-08-03] MEDS: 0.9 % Sodium Chloride Flush 3 ML SYRINGE IVFLUSH (08:30)
[2023-08-03] MEDS: Magnesium Oxide 400 MG TABLET PO (08:30)
[2023-08-03] MEDS: FLUoxetine HCl 20 MG CAPSULE PO (08:30)
[2023-08-03] MEDS: Gabapentin 100 MG CAPSULE PO (08:30)
[2023-08-03] MEDS: Multivitamin TABLET 1 TAB PO (08:30)
[2023-08-03] MEDS: amLODIPine Besylate 5 MG TABLET PO (08:30)
--- NOTE | 2023-08-03 08:39 | MHC.CM.PN ---
Patient medically cleared for dc home self care. Patient's girlfriend will transport home. RN aware.
--- NOTE | 2023-09-02 06:31 | P.OP_ITS ---
Operative Note Operative Note Date of Service: 07/30/23 Narrative: Date of Service: 07/30/23 Pre-op diagnosis: open fracture right small finger proximal phalanx Post-op diagnosis: same Procedure: irrigation and debridement right small finger percutaneous pinning right small finger Implants: 0.45 k wire Surgeon: Balaji Hernandez MD Anesthesia: GETA and local Was an Dairy Department Manager used for this Procedure?: Yes Dairy Department Manager: Jeny Alfaro Estimated blood loss (mL): 25 IV fluids (mL): 750 Pathology: none sent Condition: stable Disposition: PACU Patient was brought to the operating room and placed supine on the surgical table. He was prepped and draped in standard sterile fashion and a time out was called to identify proper site, proper procedure and IV antibiotics per weight were administered. The base of the proximal phalanx of the small finger was open with exposed bone. This was grossly contaminated with dirt. I began by irrigating and meticulously debriding the tissue. I used a combination of currette and rongeur. There was dirt and small rocks (gravel?) deeply embedded in the soft tissues and in the medullary canal of the proximal phalanx. This was also a highly comminuted fracture. I continued my debridement until the wound was clean. The extensor tendon and the flexor tendons were intact as the wound was in the radial aspect of the dorsal web space. Once debrided I placed a 0.45 mm k-wire from distal to proximal into the shaft of the adjacent metacarpal. This stabilized the fracture. This was performed with fluoroscopic guidance. Once this was done the wound was packed in iodoform gauze and loosely closed with nylon. He was placed in a sterile dressing and a volar well-padded splint and awakened from anesthesia. He was brought to the recovery room in stable condition. There were no known complications.
== END 2023-08-03 10:11 | disposition home or self-care (01) | DRG 316 ==
LOC: HO.ED 09:07 → HO.EDOVER 09:10 → HO.S3 11:11
PROVIDERS: Orthopaedic Surgery; Admitting Provider Physician Assistant; Emergency Provider Internal Medicine; PCP Family Medicine; Visit Provider Physician Assistant
PROC: 0PST04Z Reposition Right Finger Phalanx with Internal Fixation Device, Open Approach (ICD-10-PCS; principal; 2023-07-30 12:00)
DX: S62.616B Displaced fracture of proximal phalanx of right little finger, initial encounter for open fracture (principal); Z79.82 Long term (current) use of aspirin; W19.XXXA Unspecified fall, initial encounter; Z79.899 Other long term (current) drug therapy
CPT/HCPCS: 36415; 70450; 72125; 73130; 80048; 80053; 80202; 83735; 85025; 87070; 87205; 99285; J0131; J0690; J1100; J2250; J2270; J2405; J2543; J2704; J2795; J3010; J3370; J3371; J7120

== ENCOUNTER → 2023-07-30 04:14 | Outpatient (BNV) | payer OTHER, SELFPAY | PROVIDERS: Emergency Provider Internal Medicine; Visit Provider Physician Assistant | DX: S62.616B Displaced fracture of proximal phalanx of right little finger, initial encounter for open fracture (principal) | CPT/HCPCS: 13132; 20680; 26727; 26735; 99024; 99222 ==

== ENCOUNTER → 2023-07-30 08:05 | Outpatient (BNV) | payer OTHER, SELFPAY | PROVIDERS: Admitting Provider Physician Assistant; Emergency Provider Internal Medicine; PCP Family Medicine; Visit Provider Internal Medicine | DX: S62.609A Fracture of unspecified phalanx of unspecified finger, initial encounter for closed fracture (principal) | CPT/HCPCS: 99222 ==

== ENCOUNTER 2023-08-09 09:39 | Outpatient (REF) | payer OTHER, SELFPAY ==
--- NOTE | ~2023-08-09 | XR_ITS ---
EXAMINATION: XR HAND, RIGHT CLINICAL INFORMATION: Pain in right hand COMPARISON: Right hand 07/30/2023 TECHNIQUE: PA, lateral, and oblique views of the right hand. FINDINGS: 2 K wires transfix a comminuted fracture the proximal phalanx of the fifth digit. There is marked associated soft tissue swelling. Interval improvement in alignment since 07/30/2023. The remainder the bones are intact. Joint spaces are within normal limits. XR/XR hand RT min 3V IMPRESSION: Status post pinning of comminuted fracture of the proximal phalanx of the fifth digit.
== END 2023-08-09 09:40 | disposition home or self-care (01) ==
LOC: HO.HOSX 09:39
PROVIDERS: Visit Provider Orthopaedic Surgery
DX: S62.616D Displaced fracture of proximal phalanx of right little finger, subsequent encounter for fracture with routine healing (principal)
CPT/HCPCS: 73130; 99212

== ENCOUNTER 2023-08-09 14:40 | Outpatient (AMB) | payer OTHER, SELFPAY ==
--- NOTE | 2023-08-09 14:47 | MHC.OFFVIS ---
Vital Signs 08/09/23 14:57 Height 6 ft Weight 219 lb BMI 29.7 Handedness Right Intake Visit Reasons: s/p right little finger CRPP open fx Intake Note: Ravi is a 62 year old right hand dominant male who presents today for his first post operative visit s/p right little finger ORIF and I&D 08/01/23. No pain since surgery, slight twinge here and there, no significant pain. R hand; interdigital space between pinky finger and ring finger, surrounding incision area is white. Accompanied by: Spouse Allergies No Known Allergies Allergy (Verified 08/09/23 15:01) HPI HPI s/p right little finger CRPP open fx: Details: Ravi is a 62 year old right hand dominant man who presents S/P right small finger removal of K-wire, I&D of open severely comminuted proximal phalanx fracture, open reduction internal fixation with K-wires, wound closure, DOS: 08/01/23. He says he is doing well, and has only mild occasional pain. He has been taking his Abx as instructed It sounds like he has been sleeping on his right arm. [facility] Social History Household Members: Significant Other Housing: House Do you presently have visiting nurse or other home services: No Alcohol intake: current Alcohol intake frequency: holidays/special occasions only Patient Tobacco Use Status: Never used Tobacco Second Hand Smoke Exposure: No service: No Review of Systems Const All systems reviewed & are unremarkable except as noted in HPI and below Physical Exam Vital Signs: BMI result Body Mass Index 29.7 Const General: no acute distress and alert Orientation/consciousness: patient oriented x3 Neuro General: patient oriented x3 Extrem Other: The patient was alert oriented and in no acute distress The incision & pin-site are healing well with no erythema drainage or evidence of infection at present. He does have some maceration on the volar aspect of the 4th webspace but no drainage today The more radially position K-wire looks like it pulled out perhaps almost a cm. Radial K-wire removed today in clinic, which he tolerated well He is already getting significant stiffness in the PIP joint of the small finger as it is held in about 45 degrees of flexion. Cap refill is brisk Microbiology report Routine Culture 08/03/23 No growth after 2 days Radiographs: 3 views of the right hand, with attention to the small finger, were taken and viewed by me today in clinic. They show the highly comminuted fracture of the small finger proximal phalanx including both the shaft and the base. There does appear to be some displacement now at the articular surface she can clearly see is in at least 3 different pieces . It also appears that we have had some collapse at the fracture site with generalized apex volar angulation between the articular fragments and the fragments more related to the shaft. Psych Appearance: grossly normal Affect: normal affect Attitude: cooperative Assessment & Plan Assessment & Plan (1) Open fracture of proximal phalanx of right little finger: Code(s): S62.616B - Displaced fracture of proximal phalanx of right little finger, initial encounter for open fracture Category: Medical Plan Assessment & Plan: 1. Right small finger proximal phalanx fracture, open & comminuted With severe contamination with mud Status post 1st I and D and CRPP: 07/30/2023 Dr. Hernandez S/P CRPP & I&D, DOS: 08/01/23 Radial K-wire removed: 08/09/23 The patient appears to be doing well post-operatively I educated him about the post-operative course & reviewed his radiographs with him I again explained the concerns with this injury. Primarily I am concerned about possible development of infection due to the significant comminution at the fracture site and the severe contamination with mud at the time of injury. I am concerned about the increased displacement at the fracture sites today. He is going to finish his antibiotics. We again cleaned the wound and applied a fresh dry dressing and placed him in an ulnar gutter splint allowing the middle and index fingers to be free. Follow-up next Tuesday. For a wound check and with new radiographs. I explained the patient that depending on how things look we might consider a repeat I&D, +/minus another attempt at a reduction and pinning to improve overall alignment later that week. Scribed for Yvette Dowell MD by Reggie Goodwin, medical field representative, on 08/09/23 at 3:05 PM, EST. Orders: Orders XR hand RT min 3V Today M79.641 - Pain in right hand Coding Level of Care Code Global (13312) Diagnoses Open fracture of proximal phalanx of right little finger S62.616B
[2023-08-09 14:57] VITALS: BMI 29.7
== END 2023-08-09 16:26 | disposition home or self-care (01) ==
PROVIDERS: PCP Family Medicine; Visit Provider Orthopaedic Surgery
DX: S62.616B Displaced fracture of proximal phalanx of right little finger, initial encounter for open fracture (principal)
CPT/HCPCS: 99024

== ENCOUNTER 2023-08-16 12:00 | Outpatient (REF) | payer OTHER, SELFPAY ==
--- NOTE | ~2023-08-16 | XR_ITS ---
EXAMINATION: XR HAND, RIGHT CLINICAL INFORMATION: Pain in right hand. COMPARISON: August 09, 2023 TECHNIQUE: PA, lateral, and oblique views of the right hand. FINDINGS: Redemonstration of a single K-wire transfixing the previously noted comminuted fracture of the proximal phalanx of the 5th digit with marked associated soft tissue swelling. The second K-wire has been removed in the interim. There is evidence of some callus formation. XR/XR hand RT min 3V IMPRESSION: Redemonstration of comminuted fracture of the proximal phalanx of the 5th digit with a single K-wire.
== END 2023-08-16 12:01 | disposition home or self-care (01) ==
LOC: HO.HOSX 12:00
PROVIDERS: Visit Provider Orthopaedic Surgery
DX: S62.616D Displaced fracture of proximal phalanx of right little finger, subsequent encounter for fracture with routine healing (principal)
CPT/HCPCS: 73130; 99212

== ENCOUNTER 2023-08-16 15:14 | Outpatient (AMB) | payer OTHER, SELFPAY ==
--- NOTE | 2023-08-16 15:31 | A.OFFVIS_ITS ---
Vital Signs 08/16/23 15:35 Height 6 ft Weight 219 lb BMI 29.7 Handedness Right Intake Visit Reasons: Preop RT SF I&D ORIF 08/18/23 AR Intake Note: Ravi is a 63 year old male who presents today post/pre operatively for right Small Finger I&D ORIF 08/18/23 AR. Patient reports he is doing well, has occasional twinging . He had a fall yesterday around 4:30 Pm but claims he did not lose consciousness, did not land on his right hand or hit his head. Dressings removed, incision appears yellowish and white. Allergies No Known Allergies Allergy (Verified 08/09/23 15:01) HPI HPI Preop RT SF I&D ORIF 08/18/23 AR: Details: Ravi is a 63 year old right hand dominant man who presents S/P right small finger removal of K-wire, I&D of open severely comminuted proximal phalanx fracture, open reduction internal fixation with K-wires, wound closure, DOS: 08/01/23. He says he is doing well, and has only mild occasional twinges of pain. He has been taking his Abx as instructed, he says tomorrow is his final day of his current prescription. He says he fell yesterday afternoon, but denies hitting his head or landing on his right hand/arm. He says this was from overexertion in the heat from a prolonged walk. He denies any issues with dizziness or fainting. [facility] Social History Household Members: Significant Other Housing: House Do you presently have visiting nurse or other home services: No Alcohol intake: current Alcohol intake frequency: holidays/special occasions only Patient Tobacco Use Status: Never used Tobacco Second Hand Smoke Exposure: No service: No Review of Systems Const All systems reviewed & are unremarkable except as noted in HPI and below Physical Exam Vital Signs: BMI result Body Mass Index 29.7 Const General: no acute distress and alert Orientation/consciousness: patient oriented x3 Neuro General: patient oriented x3 Extrem Other: The patient was alert oriented and in no acute distress The incision & pin-site are healing well with no erythema drainage or evidence of infection at present. He does have some maceration at the radial base of the small finger. The flap of tissue may be non-viable but he has good pink granulation tissue forming He is already getting significant stiffness in the PIP joint of the small finger as it is held in ~45 degrees of flexion. He is able to bring his small finger MCP joint from ~60-90 degrees, as limited by the K-wire He can bring his index, middle, and ring fingers closed to a fist and back into full extension. Sensation is intact Cap refill is brisk Microbiology report Routine Culture 08/03/23 No growth after 2 days Radiographs: 3 views of the right hand, with attention to the small finger, were taken and viewed by me today in clinic. They show the highly comminuted fracture of the small finger proximal phalanx including both the shaft and the base, with one remaining K-wire. There does appear to be some displacement now at the articular surface she can clearly see is in at least 3 different pieces . It also appears that we have had some collapse at the fracture site with generalized apex volar angulation between the articular fragments and the fragments more related to the shaft. Psych Appearance: grossly normal Affect: normal affect Attitude: cooperative Assessment & Plan Assessment & Plan (1) Open fracture of proximal phalanx of right little finger: Code(s): S62.616B - Displaced fracture of proximal phalanx of right little finger, initial encounter for open fracture Category: Medical Plan Assessment & Plan: 1. Right small finger proximal phalanx fracture, open & comminuted With severe contamination with mud Status post 1st I and D and CRPP: 07/30/2023 Dr. Hernandez S/P CRPP & I&D, DOS: 08/01/23 Radial K-wire removed: 08/09/23 The patient appears to be doing well post-operatively I educated him about the post-operative course & reviewed his radiographs with him I again explained the concerns with this injury. Primarily I am concerned about possible development of infection due to the significant comminution at the fracture site and the severe contamination with mud at the time of injury. However he has no evidence of active infection, and he has less tenderness at the Fx site so we will delay any possible surgical intervention at this time, and re-assess next week. He was placed in a new ulnar gutter splint allowing the middle and index fingers to be free. He will work on finger ROM exercises at home. I extended his current Abx order for another 14 days of Augmentin & Doxycycline He will follow up next week for a wound check & possible K-wire removal Please note that greater than 35 minutes was spent with this patient going over the history, evaluating the patient and radiographs, formulating possible treatment options, discussing them with the patient, and documenting the visit. Scribed for Yvette Dowell MD by shruthi Brown scribe, on 08/16/23 at 3:45 PM, EST. Orders: Orders XR hand RT min 3V 08/16/23 Yvette Dowell MD M79.641 - Pain in right hand Medications: Refilled amoxicillin-pot clavulanate 500-125 mg (Augmentin) 1 tab PO Q12H 28 tabs 0RF 14 days [facility] doxycycline hyclate 100 mg PO BID 28 tabs 0RF 14 days [facility] Scribe Plan - Not visible on output: Scribed for Yvette Dowell MD by shruthi Brown, on [ ] at [ ], EST. Coding Level of Care Code Global (80119) Diagnoses Open fracture of proximal phalanx of right little finger S62.616B
[2023-08-16 15:35] VITALS: BMI 29.7
== END 2023-08-16 16:55 | disposition home or self-care (01) ==
PROVIDERS: PCP Family Medicine; Visit Provider Orthopaedic Surgery
DX: S62.616B Displaced fracture of proximal phalanx of right little finger, initial encounter for open fracture (principal)
CPT/HCPCS: 99024

== ENCOUNTER 2023-08-26 13:55 | Outpatient (REF) | payer OTHER, SELFPAY ==
--- NOTE | ~2023-08-26 | XR_ITS ---
EXAMINATION: XR HAND, RIGHT CLINICAL INFORMATION: Pain in right hand COMPARISON: 08/16/2023 TECHNIQUE: PA, lateral, and oblique views of the right hand. FINDINGS: Redemonstration of a single K-wire transfixing the previously noted comminuted fracture of the proximal phalanx of the 5th digit with persistent associated soft tissue swelling. Minimal callus formation. No new fractures. XR/XR hand RT min 3V IMPRESSION: Status post K wire fixation of the comminuted fracture of the proximal phalanx of the 5th digit. Minimal callus formation.
== END 2023-08-26 13:56 | disposition home or self-care (01) ==
LOC: HO.HOSX 13:55
PROVIDERS: PCP Family Medicine
DX: M79.641 Pain in right hand (principal); S62.616D Displaced fracture of proximal phalanx of right little finger, subsequent encounter for fracture with routine healing; X58.XXXD Exposure to other specified factors, subsequent encounter
CPT/HCPCS: 73130; 99212

== ENCOUNTER 2023-08-26 13:55 | Outpatient (AMB) | payer OTHER, SELFPAY ==
--- NOTE | 2023-08-26 13:56 | A.OFFVIS_ITS ---
Vital Signs 08/26/23 14:18 Height 6 ft Weight 219 lb BMI 29.7 Intake Visit Reasons: PO RT SF I&D ORIF 08/01/23 AR Intake Note: Ravi is a 63 year old male who presents today post/pre operatively for right Small Finger I&D ORIF 08/18/23 AR. Patient reports that he is doing well, he has no pain and no concerns. Bandage was removed, the area between the 4th and 5th fingers appears macerated. Some sutures remain intact. Pin site looks good. Cleaned with Chloraprep. Allergies No Known Allergies Allergy (Verified 08/09/23 15:01) HPI HPI PO RT SF I&D ORIF 08/01/23 AR: Details: Patient is a 63 YO M who presents for post-operative evaluation after I&D and ORIF x2 s/p open and comminuted fracture of the proximal phalanx of the right little finger . Today, the patient reports that he is experiencing no pain, but reports that he feels the pin has pulled out since last visit. Patient reports that he is not experiencing any pain at this time. Patient has been taking his antibiotics as presribed. No other acute concerns at this time. [facility] Social History Household Members: Significant Other Housing: House Do you presently have visiting nurse or other home services: No Alcohol intake: current Alcohol intake frequency: holidays/special occasions only Patient Tobacco Use Status: Never used Tobacco Second Hand Smoke Exposure: No service: No Physical Exam Vital Signs: BMI result Body Mass Index 29.7 Extrem Other: On inspection, there is edema of the small finger, particularly on the proximal phalanx Pin appears retracted compared to last visit No erythema, discharge, or evidence of infection about the pin sited noted No tenderness to palpation Lacerations are healing well, with good granulation tissue forming under the skin Sutures in place Patient is stiff in the ring and small finger, with ROM from approximately 30 to 90 degrees ROM in the thumb, index, and middle fingers full and intact Sensation intact Capillary refill brisk Results Reviewed Results Reviewed: X rays taken in the office today and independently reviewed by me, Alfa Martino PA-C demonstrate displaced, comminuted fracture of the proximal phalanx of the right small finger. Pin appears to have pulled out significantly as compared to previous X rays. Assessment & Plan Assessment & Plan (1) Open fracture of proximal phalanx of right little finger: Code(s): S62.616B - Displaced fracture of proximal phalanx of right little finger, initial encounter for open fracture Category: Medical Plan 1. Open fracture of proximal phalanx of right small finger, s/p I&D and ORIFx2 DOS: 07/30/23 and 08/01/23 Patient appears to be recovering well postoperatively Patient is educated about the postoperative course Patient is again educated about the concerns with this injury, namely the concern for infection due to contamination of injury However, patient shows no evidence of active infection at this time Patient educated to finish current course of antibiotics Due to retraction, pin is pulled at this time Patient placed in ulnar gutter cast Patient is educated about proper cast care and precautions Patient instructed to lift nothing heavier than a cell phone in his R hand Patient will follow up in [address] Dowell for repeat assessment with X rays, sooner with any acute concerns. Orders: Orders XR hand RT min 3V 08/26/23 M79.641 - Pain in right hand Coding Level of Care Code Global (54727) Diagnoses Open fracture of proximal phalanx of right little finger S62.616B
[2023-08-26 14:18] VITALS: BMI 29.7
== END 2023-08-26 15:32 | disposition home or self-care (01) ==
PROVIDERS: PCP Family Medicine
DX: S62.616B Displaced fracture of proximal phalanx of right little finger, initial encounter for open fracture (principal)
CPT/HCPCS: 99024

== ENCOUNTER 2023-09-07 08:36 | Outpatient (REF) | payer OTHER, SELFPAY ==
--- NOTE | ~2023-09-07 | XR_ITS ---
EXAMINATION: XR HAND, RIGHT CLINICAL INFORMATION: Pain in right hand COMPARISON: 08/26/2023 TECHNIQUE: PA, lateral, and oblique views of the right hand. FINDINGS: The K wire across the comminuted and displaced fracture in the fifth digit proximal phalanx has been removed. There is overall stable osseous alignment with minimal callus formation. Persistent soft tissue swelling. No new fractures. XR/XR hand RT min 3V IMPRESSION: Interval removal of the K wire across the comminuted and displaced fifth digit proximal phalanx fracture.
== END 2023-09-07 08:37 | disposition home or self-care (01) ==
LOC: HO.HOSX 08:36
PROVIDERS: Visit Provider Orthopaedic Surgery
DX: M79.641 Pain in right hand (principal); S62.616B Displaced fracture of proximal phalanx of right little finger, initial encounter for open fracture
CPT/HCPCS: 73130; 99212

== ENCOUNTER 2023-09-07 13:39 | Outpatient (AMB) | payer OTHER, SELFPAY ==
--- NOTE | 2023-09-07 14:14 | MHC.OFFVIS ---
Intake Visit Reasons: PO RT SF I&D ORIF 08/01/23 AR/ cast off Intake Note: Ravi is a 63 yo right hand dominant male who presents today post operatively s/p right SF I&D ORIF done 08/01/[address] Dowell. Patient reports no pain today. Denies numbness, tingling, locking on fingers. Patient reports he has been scratching a lot due to continuous itching. Patient brings up a new problem regarding left index finger open wound. He is wondering if it looks concerning. Allergies No Known Allergies Allergy (Verified 09/07/23 14:18) HPI HPI PO RT SF I&D ORIF 08/01/23 AR/ cast off: Details: Ravi is a 63 year old right hand dominant man who presents S/P right small finger removal of K-wire, I&D of open severely comminuted proximal phalanx fracture, open reduction internal fixation with K-wires, wound closure, DOS: 08/01/23. He says he is doing well, and denies any pain or numbness. He complains of his small finger feeling very itchy in his ulnar gutter cast. He has finished his Abx as instructed and denies any symptoms of infection. [facility] Social History (Updated 09/07/23 @ 14:19 by TRAE Stephens) Household Members: Significant Other Housing: House Do you presently have visiting nurse or other home services: No Alcohol intake: current Alcohol intake frequency: holidays/special occasions only Patient Tobacco Use Status: Never used Tobacco Second Hand Smoke Exposure: No service: No Current occupational status: unemployed Current occupation: rt handed Review of Systems Const All systems reviewed & are unremarkable except as noted in HPI and below Physical Exam Const General: no acute distress and alert Orientation/consciousness: patient oriented x3 Neuro General: patient oriented x3 Extrem Other: Evaluation of Right Upper Extremity: The patient is alert, oriented, and in no acute distress He is already getting significant stiffness in the PIP joint of the small finger as it is held in ~45 degrees of flexion. He is able to bring his small finger MCP joint to about 60 degrees He can bring his index, middle, and ring fingers have some stiffness. He can actively bring them towards a fist and back into extension. The incision & pin-site are well-healed with no erythema drainage or evidence of infection at present. He does have some maceration at the radial base of the small finger, and in the 4th webspace.. He has abundant pink granulation tissue forming in the area of the open wound on the volar and radial aspect of the small finger and into the 4th webspace. He does have some contraction of the wound and epithelialization happening at the wound edges which is encouraging. No purulence, and again we have granulation tissue fully covering the wound. Fracture nontender today. Microbiology report Routine Culture 08/03/23 No growth after 2 days Radiographs: 3 views of the right hand, with attention to the small finger, were taken and viewed by me today in clinic. They show the highly comminuted fracture of the small finger proximal phalanx including both the shaft and the base & some evidence of interval bony healing. There does appear to be some displacement now at the articular surface we can clearly see is in at least 3 different pieces. It also appears that we have had some collapse at the fracture site with generalized apex volar angulation between the articular fragments and the fragments more related to the shaft. There does appear to be some evidence of early interval bony healing. Psych Appearance: grossly normal Affect: normal affect Attitude: cooperative Assessment & Plan Assessment & Plan (1) Open fracture of proximal phalanx of right little finger: Code(s): S62.616B - Displaced fracture of proximal phalanx of right little finger, initial encounter for open fracture Category: Medical Plan Assessment & Plan: 1. Right small finger proximal phalanx fracture, open & comminuted With severe contamination with mud S/P 1st I&D & CRPP: 07/30/2023 Dr. Hernandez S/P CRPP & I&D, DOS: 08/01/23 Radial K-wire removed: 08/09/23 Second K-wire removed: 08/26/23 The patient appears to be doing well post-operatively I educated him about the post-operative course He has no evidence of infection and denies any pain today He will perform daily dressing changes at home. His cast was removed today in clinic, and is being discontinued.. He will work on gentle ROM exercises at home, 20x daily He is still to avoid any underwater activity at this time, but may wash his hand and the wound with soap and water in the shower every day. I ordered OT hand therapy to work on gentle finger ROM He will follow up in 2-3 weeks, with X-rays 3V attn R SF. Scribed for Yvette Dowell MD by Reggie Goodwin, medical transcription supervisor, on 09/07/23 at 2:55 PM, EST. Orders: Orders XR hand RT min 3V Today M79.641 - Pain in right hand OT Evaluation and Treatment Today S62.616B - Displaced fracture of proximal phalanx of right little finger, initial encounter for open fracture Scribe Plan - Not visible on output: Scribed for Yvette Dowell MD by Reggie Goodwin medical transcription supervisor, on [ ] at [ ], EST. Coding Level of Care Code Global (81861) Diagnoses Open fracture of proximal phalanx of right little finger S62.615V
== END 2023-09-07 16:35 | disposition home or self-care (01) ==
PROVIDERS: PCP Family Medicine; Visit Provider Orthopaedic Surgery
DX: S62.616B Displaced fracture of proximal phalanx of right little finger, initial encounter for open fracture (principal)
CPT/HCPCS: 99024

== ENCOUNTER 2023-09-28 13:02 | Outpatient (AMB) | payer OTHER, SELFPAY ==
--- NOTE | 2023-09-28 13:31 | MHC.OFFVIS ---
Vital Signs 09/28/23 13:32 Height 6 ft Weight 219 lb BMI 29.7 Intake Visit Reasons: PO RT SF I&D ORIF 08/01/23 AR/ Intake Note: Ravi is a 63 yo right hand dominant male who presents today post operatively s/p right SF I&D ORIF done 08/01/[address] Dowell. Patient reports a sensation that goes from the right hand to the right shoulder. Denies numbness, tingling, or locking on fingers. Denies taking any medication for pain. Patient has gone to two sessions of OT which he finds helpful. Allergies No Known Allergies Allergy (Verified 09/28/23 13:33) HPI HPI PO RT SF I&D ORIF 08/01/23 AR/: Details: Ravi is a 63 year old right hand dominant man who presents S/P right small finger removal of K-wire, I&D of open severely comminuted proximal phalanx fracture, open reduction internal fixation with K-wires, wound closure, DOS: 08/01/23. He says he is doing well, and denies any pain or numbness. He has been attending OT hand therapy and working on ROM at home, which he finds helpful. He has finished his Abx as instructed and denies any symptoms of infection. [facility] Social History (Updated 09/07/23 @ 14:19 by TRAE Stephens) Household Members: Significant Other Housing: House Do you presently have visiting nurse or other home services: No Alcohol intake: current Alcohol intake frequency: holidays/special occasions only Patient Tobacco Use Status: Never used Tobacco Second Hand Smoke Exposure: No service: No Current occupational status: unemployed Current occupation: rt handed Physical Exam Vital Signs: BMI result Body Mass Index 29.7 Const General: no acute distress and alert Orientation/consciousness: patient oriented x3 Neuro General: patient oriented x3 Extrem Other: Evaluation of Right Upper Extremity: The patient is alert, oriented, and in no acute distress The incision & pin-site are well-healed with no erythema drainage or evidence of infection Initially he had stiffness in all fingers of his right hand We worked on ROM exercises today in clinic, before leaving clinic he could bring his index, middle, and ring fingers closed to a fist, and could actively hold his fingertips ~1-2cm from his palm. He has ~40 degrees of flexion at the small finger MCP joint He has ~30 degrees ROM of the small finger DIP joint. The ring finger is aligned well with the small finger No tenderness over the proximal phalanx He has Dupuytrens nodules in his right palm, with a cord extending into the small finger He has multiple Dupuytrens nodules in the palm of his left hand, with cords extending into the ring & small fingers He has a slight superficial 1.5cm line of healing tissue in his palm, which is sealed deeply Microbiology report Routine Culture 08/03/23 No growth after 2 days Radiographs: 3 views of the right hand, with attention to the small finger, were taken and viewed by me today in clinic. They show the highly comminuted fracture of the small finger proximal phalanx including both the shaft and the base & some evidence of interval bony healing. There does appear to be some displacement now at the articular surface we can clearly see is in at least 3 different pieces. It also appears that we have had some collapse at the fracture site with generalized apex volar angulation between the articular fragments and the fragments more related to the shaft. There does appear to be some evidence of early interval bony healing. Psych Appearance: grossly normal Affect: normal affect Attitude: cooperative Assessment & Plan Assessment & Plan (1) Open fracture of proximal phalanx of right little finger: Code(s): S62.616B - Displaced fracture of proximal phalanx of right little finger, initial encounter for open fracture Category: Medical (2) Stiffness of finger joint of right hand: Code(s): M25.641 - Stiffness of right hand, not elsewhere classified Category: Medical (3) Dupuytren's contracture of right hand: Code(s): M72.0 - Palmar fascial fibromatosis [Dupuytren] Category: Medical (4) Dupuytren's disease of palm of left hand: Code(s): M72.0 - Palmar fascial fibromatosis [Dupuytren] Category: Medical Plan Assessment & Plan: 1. Right small finger proximal phalanx fracture, open & comminuted With severe contamination with mud from a fall, DOI: S/P 1st I&D & CRPP: 07/30/2023 Dr. Hernandez S/P CRPP & I&D, DOS: 08/01/23 Radial K-wire removed: 08/09/23 Second K-wire removed: 08/26/23 The patient appears to be doing well post-operatively I educated him about the post-operative course I again educated him and his on the signs of infection. He has no evidence of infection and denies any pain today We worked on ROM exercises today in clinic. He will continue to work on gentle ROM exercises at home, 20x daily He will continue to attend OT hand therapy to work on finger ROM He was given a note for work to remain out of work until his next appointment in 5 weeks He will follow up in 5 weeks for a ROM check 2. Right Dupuytrens disease With multiple nodules and a cord extending into the small finger 3. Left Dupuytrens disease With multiple nodules and a cord extending into the ring & small finger I educated him and his about this condition I discussed operative treatment options I directed him to the [email or web address] website for more information No intervention warranted at this time He will work on ROM exercises at home If his symptoms increase in severity, when he has recovered from his right hand surgery, he can follow up to assess and discuss treatment options. Scribed for Yvette Dowell MD by Reggie Goodwin, lpn or medical assistant, on 09/28/23 at 1:55 PM, EST. Orders: Orders XR hand RT min 3V Today M79.641 - Pain in right hand Scribe Plan - Not visible on output: Scribed for Yvette Dowell MD by Reggie Goodwin lpn or medical assistant, on [ ] at [ ], EST. Coding Level of Care Code Global (98900) Diagnoses Open fracture of proximal phalanx of right little finger S62.616B Stiffness of finger joint of right hand M25.641 Dupuytren's contracture of right hand M72.0 Dupuytren's disease of palm of left hand M72.0
[2023-09-28 13:32] VITALS: BMI 29.7
== END 2023-09-28 14:11 | disposition home or self-care (01) ==
PROVIDERS: PCP Family Medicine; Visit Provider Orthopaedic Surgery
DX: S62.616B Displaced fracture of proximal phalanx of right little finger, initial encounter for open fracture (principal); M25.641 Stiffness of right hand, not elsewhere classified; M72.0 Palmar fascial fibromatosis [Dupuytren]
CPT/HCPCS: 99024

== ENCOUNTER 2023-09-28 13:43 | Outpatient (REF) | payer OTHER, SELFPAY ==
--- NOTE | ~2023-09-28 | XR_ITS ---
EXAMINATION: XR HAND, RIGHT CLINICAL INFORMATION: Right hand pain. COMPARISON: 09/07/2023. TECHNIQUE: PA, lateral, and oblique views of the right hand. FINDINGS: Again seen is a comminuted intra-articular fracture of the small finger proximal phalangeal base with apex anterolateral angulation at the fracture sites. There is increased angulation of the fragments as compared to prior. Surrounding soft tissues are swollen. There is disuse osteopenia in the phalanges of the small finger. No new fractures are identified. Minimal osteoarthritis in the MCP, interphalangeal, 1st CMC, and triscaphe joints. XR/XR hand RT min 3V IMPRESSION: Increased angulation of the comminuted intra-articular fracture of the small finger proximal phalangeal base. Electronically signed by: Dung Whaley MD 10/21/2023 10:10 PM EDT
== END 2023-09-28 13:44 | disposition home or self-care (01) ==
LOC: HO.HOSX 13:43
PROVIDERS: Visit Provider Orthopaedic Surgery
DX: S62.616B Displaced fracture of proximal phalanx of right little finger, initial encounter for open fracture (principal); M25.641 Stiffness of right hand, not elsewhere classified; M72.0 Palmar fascial fibromatosis [Dupuytren]
CPT/HCPCS: 73130; 99212

== ENCOUNTER 2023-11-02 08:34 | Outpatient (REF) | payer OTHER, SELFPAY ==
--- NOTE | ~2023-11-02 | XR_ITS ---
EXAMINATION: XR HAND, RIGHT CLINICAL INFORMATION: M79.641 - Pain in right hand COMPARISON: None available. TECHNIQUE: PA, lateral, oblique, and lateral oblique views of the right hand. FINDINGS: Disuse osteopenia. Again seen is a comminuted intra-articular fracture of the small finger proximal phalangeal base with apex anterolateral angulation . There is stable angulation of the fragments as compared to prior. No changes. There is disuse osteopenia in the phalanges of the small finger. No new fractures are identified. Minimal osteoarthritis in the MCP, interphalangeal, 1st CMC, and STT joints. There is persistent fifth digit and ulnar and soft tissue swelling. XR/XR hand RT min 3V IMPRESSION: 1. No significant interval change in the appearance and alignment of the comminuted intra-articular fracture of the fifth digit proximal aspect, proximal phalanx. 2. Disuse osteopenia. 3. No acute findings otherwise. Electronically signed by: Dung Atkins MD 01/10/2024 10:52 AM SHANELLE OCHOA
== END 2023-11-02 08:35 | disposition home or self-care (01) ==
LOC: HO.HOSX 08:34
PROVIDERS: Visit Provider Orthopaedic Surgery
DX: M79.641 Pain in right hand (principal); S62.616B Displaced fracture of proximal phalanx of right little finger, initial encounter for open fracture; M25.641 Stiffness of right hand, not elsewhere classified; M72.0 Palmar fascial fibromatosis [Dupuytren]
CPT/HCPCS: 73130; 99212

== ENCOUNTER 2023-11-02 14:42 | Outpatient (AMB) | payer OTHER, SELFPAY ==
[2023-11-02 15:49] VITALS: BMI 29.7
--- NOTE | 2023-11-02 15:49 | A.OFFVIS_ITS ---
Vital Signs 11/02/23 15:49 Height 6 ft Weight 219 lb BMI 29.7 Intake Visit Reasons: OV RT SF I&D ORIF 08/01/23 AR/ Intake Note: Ravi is a 63 yo right hand dominant male who presents today for a ROM check s/p right SF I&D ORIF done 08/01/[address] Dowell. Patient continues to go to OT, which he finds has been helpful. He is able to make a fist. Denies numbness or tingling. Allergies No Known Allergies Allergy (Verified 11/02/23 15:54) HPI HPI OV RT SF I&D ORIF 08/01/23 AR/: Details: Ravi is a 63 year old right hand dominant man who presents S/P right small finger removal of K-wire, I&D of open severely comminuted proximal phalanx fracture, open reduction internal fixation with K-wires, wound closure, DOS: 08/01/23. He says he is doing well, and denies any pain or numbness. He has been attending OT hand therapy and working on ROM at home, which he finds helpful. He says he has better function & use of his hand after therapy. [facility] Social History (Updated 09/07/23 @ 14:19 by TRAE Stephens) Household Members: Significant Other Housing: House Do you presently have visiting nurse or other home services: No Alcohol intake: current Alcohol intake frequency: holidays/special occasions only Patient Tobacco Use Status: Never used Tobacco Second Hand Smoke Exposure: No service: No Current occupational status: unemployed Current occupation: rt handed Review of Systems Const All systems reviewed & are unremarkable except as noted in HPI and below Physical Exam Vital Signs: BMI result Body Mass Index 29.7 Const General: no acute distress and alert Orientation/consciousness: patient oriented x3 Neuro General: patient oriented x3 Extrem Other: Evaluation of Upper Extremity: The patient is alert, oriented, and in no acute distress Neuro: Median, Ulnar, Radial nerves motor and sensory intact and sensation is normal to the tips of all digits Vascular: Cap refill brisk ROM: He is able to make a fist and extend all his digits Good ROM of the small finger MCP joint He has some PIP joint ROM, with a 40 degree flexion contracture He can bring his small fignertip ~2-3cm from his palm He has some stiffness of the middle & ring fingers, but can bring these closed to a fist with encouragement Satisfactory clinical alignment of all digits No tenderness over the proximal phalanx He has Dupuytrens nodules in his right palm, with a cord extending into the small finger He has multiple Dupuytrens nodules in the palm of his left hand, with cords exte nding into the ring & small fingers He has a slight superficial 1.5cm line of healing tissue in his palm, which is sealed deeply Microbiology report Routine Culture 08/03/23 No growth after 2 days Radiographs: 3 views of the right hand, with attention to the small finger, were taken and viewed by me today in clinic. They show the highly comminuted fracture of the small finger proximal phalanx including both the shaft and the base & evidence of interval bony healing, with signifncant malunion and no evidence of Osteomyelitis. There does appear to be some displacement now at the articular surface we can clearly see is in at least 3 different pieces. It also appears that we have had some collapse at the fracture site with generalized apex volar angulation between the articular fragments and the fragments more related to the shaft. There does appear to be some evidence of interval bony healing. Psych Appearance: grossly normal Affect: normal affect Attitude: cooperative Assessment & Plan Assessment & Plan (1) Open fracture of proximal phalanx of right little finger: Code(s): S62.616B - Displaced fracture of proximal phalanx of right little finger, initial encounter for open fracture Category: Medical (2) Stiffness of finger joint of right hand: Code(s): M25.641 - Stiffness of right hand, not elsewhere classified Category: Medical (3) Dupuytren's contracture of right hand: Code(s): M72.0 - Palmar fascial fibromatosis [Dupuytren] Category: Medical (4) Dupuytren's disease of palm of left hand: Code(s): M72.0 - Palmar fascial fibromatosis [Dupuytren] Category: Medical Plan Assessment & Plan: 1. Right small finger proximal phalanx fracture, open & comminuted With severe contamination with mud from a fall, DOI: S/P 1st I&D & CRPP: 07/30/2023 Dr. Hernandez S/P CRPP & I&D, DOS: 08/01/23 Radial K-wire removed: 08/09/23 Second K-wire removed: 08/26/23 He is doing well, without any pain or evidence of infection I explained the signs and symptoms of infection, if the patient develops any new or worsening erythema, drainage, pain, or warmth they should contact the clinic or attend the ED. He still has some stiffness but it is improving. We worked on ROM exercises today in clinic. He will continue to work on gentle ROM exercises at home, 20x daily He will continue to attend OT hand therapy to work on finger ROM I explained that I am hopeful that he can get his thumb index middle and ring finger range of motion and strength back to normal. The small finger has satisfactory clinical alignment and good motion at the MCP joint enough to follow the ring finger. It is not painful and thank Goodness we do not see any signs of infection. 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 He will follow up prn 2. Right Dupuytrens disease With multiple nodules and a cord extending into the small finger 3. Left Dupuytrens disease With multiple nodules and a cord extending into the ring & small finger I educated him and his about this condition I discussed operative treatment options I directed him to the [email or web address] website for more information No intervention warranted at this time He will work on ROM exercises at home If his symptoms increase in severity, when he has recovered from his right hand surgery, he can follow up to assess and discuss treatment options. Scribed for Yvette Dowell MD by shruthi Brown scribe, on 11/02/23 at 3:55 PM, EST. Orders: Orders XR hand RT min 3V Today M79.641 - Pain in right hand Scribe Plan - Not visible on output: Scribed for Yvette Dowell MD by Reggie Goodwin director of medical services, on [ ] at [ ], EST. Coding Level of Care Code Global (65268) Diagnoses Open fracture of proximal phalanx of right little finger S62.616B Stiffness of finger joint of right hand M25.641 Dupuytren's contracture of right hand M72.0 Dupuytren's disease of palm of left hand M72.0
== END 2023-11-02 16:29 | disposition home or self-care (01) ==
PROVIDERS: PCP Family Medicine; Visit Provider Orthopaedic Surgery
DX: S62.616B Displaced fracture of proximal phalanx of right little finger, initial encounter for open fracture (principal); M25.641 Stiffness of right hand, not elsewhere classified; M72.0 Palmar fascial fibromatosis [Dupuytren]
CPT/HCPCS: 99213

== ENCOUNTER 2023-11-02 15:10 | Outpatient (REF) | payer OTHER, SELFPAY | END 2023-11-02 15:11 | disposition home or self-care (01) | LOC: HO.XRAY 15:10 | PROVIDERS: PCP Family Medicine; Visit Provider Orthopaedic Surgery | DX: Z13.89 Encounter for screening for other disorder (principal) ==

== ENCOUNTER → 2023-11-02 15:14 | Outpatient (BNV) | payer OTHER, SELFPAY | PROVIDERS: Visit Provider Radiology Diagnostic Radiology | DX: S62.616D Displaced fracture of proximal phalanx of right little finger, subsequent encounter for fracture with routine healing (principal); M85.88 Other specified disorders of bone density and structure, other site | CPT/HCPCS: 73130 ==

== ENCOUNTER 2023-11-30 14:30 | Outpatient (RCR) | payer OTHER, SELFPAY ==
--- NOTE | 2023-09-26 07:46 | MHC.OT.EP ---
[address] [phone] Occupational Therapy Plan of Care Patient Name: Ravi Morgan Date of Evaluation: 09/21/23 Diagnosis: S/P I&D AND CRPP OF R SF Pain Location: PAINFREE AT REST 3/10 WITH USE, DORSAL AND VOLAR ULNAR ASPECT OF HAND Pain Score: 0-3/10 Pain Scale Used: Numeric (0 - 10) Aggravating Factors: YARD WORK/ HAND TOOLS Alleviating Factors: ICY HOT, NOT USING ICE/ HEAT OFTEN, NOT TAKING PAIN MEDICATION Assessment: MR MORGAN IS 7 WEEKS POST OP I & D OF R SF AND CRPP, DUE TO A FRACTURE OF HIS PROXIMAL PHALANX OF R SMALL FINGER FROM A MECHANICAL FALL. DURING OT EVAL, Pt P/W STIFFNESS AT PIPj, DIFFICULTIES EXTENDING AND FLEXING JOINT, INCLUDING MAKING A COMPLETE FIST. HE IS ABOUT 4 CM TIP OF SMALL FINGER TO DPC. HE WOULD BENEFIT FROM EXTENSIVE THERAPY TO ADDRESS THE AREAS MENTIONED BELOW AND REGAIN FUNCTIONAL ABILITIES OF HIS DOMINANT HAND. A 30% LIMITATION IS REPORTED PER THE QUICK DASH ASSESSMENT. Frequency and Duration: The patient will be seen 3X/WEEK FOR 8 WEEKS Short Term Goals: IND HEP IND EDEMA MANAGEMENT STRATEGIES IND ORTHOSIS USE IND SCAR MOBILIZATION STRATEGIES TOLERATE >8 MINS OF ROUGH TEXTURES, INCLUDING VIBRATION TO R SF Jail Goals: ACHIEVE <1 CM TIP TO DPC FOR R SF SF PIPj EXTENSION <15 DEGREES R GROSS GRASP >30 POUNDS TOLERATE LIFTING >15 POUNDS FLOOR TO WAIST WITH <2/10 PAIN QUICK DASH <14% Treatment Plan: Therapeutic Exercise Therapeutic Activity Home Exercise Program Splinting Neuro Re-ed Patient Education Desensitization/Sensory Re-ed Edema Control ADL Training Ultrasound NMES Iontophoresis Paraffin Fluidotherapy MHP Cold Packs Joint Mobilization Soft Tissue Mobilization Kinesiotaping Other (see comments) Electronically Signed By: RAGHAV LYNN OTR/L Please Sign and return to therapist. Thank you once again for your referral.
--- NOTE | 2023-10-28 11:09 | MHC.OT.OP ---
[address] [phone] F: [phone] Occupational Therapy Progress Note Patient Name: Ravi Morgan Diagnosis: S/P I&D AND CRPP OF R SF Date of Surgery: 07/30/23 Date of Evaluation: 09/21/23 Treatments to Date: 10 Cancellations to Date: 1 No Shows to Date: 0 Subjective: I HAVE SOME LIGHT WEIGHTS AT HOME THAT I USE Pain Score: 1 Pain Location: R SF Objective Measures: RIGHT D5 MCP 0/60 PIP 25(10)/60 DIP 0/45 GROSSLY 2 CM TIP TO PALM Status: Progressing Assessment: MR MORGAN IS 12 WEEKS POST OP CRPP AND I&D TO R SF AFTER A FALL IN THE COMMUNITY. HE IS SLOWLY PROGRESSING WITH HIS ROM AND FUNCTIONAL STRENGTH. HIS PAIN IS LOW. HE HAS ABOUT 2 CM FROM TIP OF SMALL FINGER TO PALM. HE SEEMS TO DO BETTER WITH MULTIMODAL CUING TO ENSURE CARRY OVER OF INFORMATION PROVIDED IN OUTPATIENT THERAPY. A NIGHT EXTENSION ORTHOSIS WAS FABRICATED TO ADDRESS THE PIPj OF THE SF. IT APPEARS HE IS INCONSISTENT WITH USE OF THE ORTHOSIS AND HIS FOLLOW THROUGH WITH HIS HEP. ONGOING SKILLED OT IS WARRANTED TO ADDRESS THE AREAS MENTIONED ABOVE AND TRANSITION TO A HOME BASED PROGRAM WHEN APPROPRIATE. Short Term Goals: IND HEP IND EDEMA MANAGEMENT STRATEGIES IND ORTHOSIS USE IND SCAR MOBILIZATION STRATEGIES TOLERATE >8 MINS OF ROUGH TEXTURES, INCLUDING VIBRATION TO R SF (MET) Snf Goals: ACHIEVE <1 CM TIP TO DPC FOR R SF SF PIPj EXTENSION <15 DEGREES R GROSS GRASP >30 POUNDS (MET) TOLERATE LIFTING >15 POUNDS FLOOR TO WAIST WITH <2/10 PAIN QUICK DASH <14% Frequency and Duration: The patient will be seen 2X/WEEK FOR 4 WEEKS Treatment Plan: Therapeutic Exercise Therapeutic Activity Home Exercise Program Splinting Neuro Re-ed Patient Education Desensitization/Sensory Re-ed Edema Control ADL Training Ultrasound NMES Iontophoresis Paraffin Fluidotherapy MHP Cold Packs Joint Mobilization Soft Tissue Mobilization Kinesiotaping Other (see comments) Electronically Signed By: RAGHAV LYNN OTR/L Reviewed/agree with student documentation: N/A Therapist:
--- NOTE | 2023-11-30 15:18 | MHC.OT.DC ---
[address] [phone] F: [phone] Occupational Therapy Discharge Note Patient Name: Ravi Morgan Provider: Yvette Dowell Diagnosis: S/P I&D AND CRPP OF R SF Date of Surgery: 07/30/23 Date of Evaluation: 09/21/23 Date of Discharge: 11/30/23 Treatments to Date: 18 Cancellations to Date: 1 No Shows to Date: 1 Discharge Status: Achieved Goals Improved Function Independent with HEP Discharge Summary: Patient was provided with an LMB splint, custom night MCP extension orthosis. Educated on self scar mobilization/management techniques, detailed HEP with equipment needed to engage in HEP. Pt has achieved 8/10 goals and is IND in HEP and scar management. Pt has significantly improved function and is IND with ADL/IADL tasks within the home with no limitations reported via a QuickDash assessment score of 0. Pt reports he feels confident in his self management regimen. D/C OT. Electronically Signed By: Tracee Carey OT/s Reviewed/agree with student documentation: Yes Therapist: WILLAM Hirsch/Ning Please Sign and return to therapist, thank you for your referral.
== END 2023-11-30 15:20 | disposition home or self-care (01) ==
LOC: HO.OT 14:30
PROVIDERS: PCP Family Medicine; Visit Provider Orthopaedic Surgery
DX: S62.616D Displaced fracture of proximal phalanx of right little finger, subsequent encounter for fracture with routine healing (principal)
CPT/HCPCS: 29130; 97018; 97035; 97110; 97140; 97167; 97760

== ENCOUNTER 2024-06-29 22:01 | Inpatient (IN) | payer MEDICAID, SELFPAY ==
--- NOTE | ~2024-06-29 | XR_ITS ---
CLINICAL HISTORY: swelling 3 views left foot Comparison: None Findings: There is dorsal soft tissue swelling. There is no evidence of subcutaneous gas or osteomyelitis. There is no fracture or dislocation. Joint spaces appear normal. There is no radiopaque foreign body. Impression: No acute osseous abnormality. This document has been electronically signed by: Macario Taylor MD on 06/29/2024 23:06:09
--- NOTE | ~2024-06-29 | US_ITS ---
CLINICAL HISTORY: Erythema, swelling, R O DVT Venous duplex ultrasound left lower extremity Comparison: None Findings: The visualized deep veins are fully compressible with normal Doppler color flow and spectral tracings. No popliteal cyst. IMPRESSION: 1. Negative for left lower extremity deep vein thrombosis. This document has been electronically signed by: Isidro Thorpe MD on 06/30/2024 07:33:46
--- NOTE | ~2024-06-29 | CT_ITS ---
CLINICAL HISTORY: Elevated AST, ALT, bilirubin R O biliary disease CT abdomen and pelvis with contrast Comparison: None. Findings: No consolidation or effusion. The appearance of the liver suggests fatty infiltration versus nonspecific hepatocellular pathology such as cirrhosis, with no focal lesion. The spleen measures 15.4 x 14.1 x 10.0 cm. There is pelvic ascites. Otherwise unremarkable gallbladder and solid organs. No urolithiasis. No bowel obstruction, pneumoperitoneum, or pneumatosis. Pelvic contents unremarkable. Normal appendix. No acute fracture. IMPRESSION: Hepatic steatosis versus cirrhosis with splenomegaly and ascites. This document has been electronically signed by: Isidro Thorpe MD on 06/30/2024 07:16:53
[2024-06-29 22:02] VITALS: BP 167/86; PULSE 120; RESP 17; TEMP 36.7; O2SAT 99; BMI 31.9
[2024-06-29 23:33] LABS: Basophils Percent Auto 0.4 % (0-2); Hemoglobin 14.4 g/dl (14.0-18.0); Mean Corpuscular Volume 91.3 fL (80.0-98.0); Neutrophils Percent Auto 73.6 % (45-73); PLT CLUMP 1; SCAN SMEAR FLAG 1
[2024-06-29 23:35] LABS: Eosinophils Percent Auto 0.8 % (0-4); Hematocrit 40.7 % (42.0-52.0); Imm Gran Abs Auto 0.02 X10*3/uL (0.00-0.03); Imm Gran Pct Auto 0.4 % (0.0-0.4); Lymphocytes Absolute Auto 0.8 X10*3/uL (1.2-4.9); Lymphocytes Percent Auto 14.5 % (20-40); Mean Corpuscular HGB Conc 35.4 g/dl (31.0-36.0); Mean Corpuscular Hemoglobin 32.3 pg (27.0-33.0); Monocytes Absolute Auto 0.5 X10*3/uL (0.1-1.2); Monocytes Percent Auto 10.3 % (2-11); Neutrophils Absolute Auto 3.9 x10*3/uL (2.0-8.3); Red Blood Count 4.46 X10*6/uL (4.60-5.80); Red Cell Distribution Width 15.1 % (11.0-16.0)
[2024-06-29 23:40] LABS: MANUAL DIFF FLAG SCAN; White Blood Count 5.3 X10*3/uL (4.8-10.8)
[2024-06-29 23:41] LABS: Platelet Count 55 X10*3/uL (160-400)
[2024-06-29 23:52] LABS: Alanine Aminotransferase 47 U/L (0-40); Albumin Level 3.7 g/dL (3.5-5.0); Alkaline Phosphatase 153 U/L (39-117); Anion Gap 13 (12-20); Aspartate Amino Transferase 96 U/L (5-37); Bilirubin Total 5.6 mg/dL (0.0-1.0); Blood Urea Nitrogen 5 mg/dL (9-16); Calcium 8.8 mg/dL (8.4-10.2); Carbon Dioxide 27 mmol/L (22-29); Chloride 103 mmol/L (96-108); Creatinine Clr Calc Pharmacy 167.4; Estimated Glomerular Filt Rate > 60; Glucose Random 133 mg/dL (60-115); Potassium 4.1 mmol/L (3.3-5.1); Sodium 139 mmol/L (135-145); Total Protein 7.3 g/dL (6.5-8.0)
[2024-06-29 23:55] LABS: SLIDE REVIEW VERIFIED
[2024-06-30 02:21] VITALS: BP 141/59; PULSE 83; RESP 20; TEMP 36.8; O2SAT 96
--- NOTE | 2024-06-30 03:45 | PC.NURSE ---
water warm blanket and pillow given per request.
--- NOTE | 2024-06-30 03:51 | ED_ITS ---
HPI - Extremity Problem General Chief complaint: Wound/Laceration Stated complaint: Left Foot Swollen/ laceration Time Seen by Provider: 06/30/24 03:48 Source: patient Mode of arrival: ambulatory Limitations: no limitations History of Present Illness ED Provider: Dr. Raad Vela HPI Narrative: 63-year-old male with a history of bilateral beat neuropathy who presents emergency department for evaluation of swelling, redness increased warmth of the left lower extremity. Patient states that his left foot was swollen a proximally 1 month ago. Patient states that he accidentally scraped his left lateral calf on his bed frame causing a small wound. He cleaned the wound and covered it with bacitracin. He states that over the last 2-3 days is left leg is become very swollen from the foot to just below the knee. He has also noted increased redness and increased warmth. Patient states that his last tetanus shot was 2 years prior. He denied fever but did have chills. He states that he has had an occasional nonproductive cough. He denied shortness of breath, dyspnea on exertion or orthopnea. He denied nausea, vomiting or diarrhea. The patient states he has not gone on any long trips. He has no history of hypercoagulability/blood clot. He has not been on antibiotics recently. He denies MRSA infection in the past. The patient states he does binge drink alcohol and will drink anywhere from 2-12 beers per week. States he does have a history of alcohol use disorder but he has cut down significantly. He denied drug use Related Data Home Medications ?Medication ?Instructions ?Recorded ?Confirmed amlodipine 5 mg tablet 5 mg PO DAILY 07/30/23 07/30/23 aspirin 81 mg tablet,delayed 81 mg PO DAILY 07/30/23 07/30/23 release fluoxetine 20 mg capsule 20 mg PO DAILY 07/30/23 07/30/23 gabapentin 100 mg capsule 100 mg PO BID 07/30/23 07/30/23 magnesium 200 mg tablet 200 mg PO DAILY 07/30/23 07/30/23 milk thistle 150 mg capsule 300 mg PO DAILY 07/30/23 07/30/23 multivitamin 1 tab PO DAILY 07/30/23 07/30/23 vitamin B complex 1 cap PO DAILY PRN energy 07/30/23 07/30/23 Previous Rx's ?Medication ?Instructions ?Recorded acetaminophen 325 mg tablet 650 mg (2 x 325 mg) PO Q6H PRN 08/03/23 Pain, Mild (Pain Scale 1-3), fever or headache 30 days #240 tabs Allergies Allergy/AdvReac Type Severity Reaction Status Date / Time No Known Allergies Allergy Verified 06/29/24 22:10 Review of Systems 2 Review of Systems: Yes all other systems are reviewed and are negative [facility] Past Medical History [facility] Narrative: Social history: He denies tobacco use. He does drink anywhere from 2-12 beers per week and has a history of alcohol use disorder in his cut down on the amount of alcohol that he has been drinking over the past several months. He denied drug use. Social History Social History (Updated 09/07/23 @ 14:19 by TRAE Stephens) Household Members: Significant Other Housing: House Do you presently have visiting nurse or other home services: No Alcohol intake: current Alcohol intake frequency: does not drink Patient Tobacco Use Status: Never used Tobacco Smoked in Last 30 Days: No Second Hand Smoke Exposure: No Use of substances other than those prescribed or required for medical reasons: No Advance Directives: No Advance Directives Information Provided: Yes Do you have a plan to hurt others: No Plan service: No Current occupational status: unemployed Current occupation: rt handed Physical Exam 2 Vital Signs: Vital Signs: Last Vital Signs Temp 97.8 F 06/30/24 08:00 Pulse 80 06/30/24 08:00 Resp 16 06/30/24 08:00 BP 138/67 06/30/24 08:00 Pulse Ox 95 06/30/24 08:00 O2 Del Method Room Air 06/30/24 08:00 BMI result Body Mass Index 31.9 Vital signs revealed elevated blood pressure of 141/59 otherwise unremarkable Exam: General: Awake, alert in no distress Head: Normocephalic, atraumatic EENT: PERRL, Lids normal, sclera are icteric, conjunctiva normal, nose normal , ears normal, throat without erythema or exudates, mouth revealed dry mucous membranes Neck: Supple, no adenopathy Lung: breath sounds symmetric, no wheezing, rales or rhonchi Chest: symmetric movement, nontender Heart: regular rate and rhythm, normal S1, S2 no murmurs or rubs Abdomen: soft, non-tender, nondistended, normal bowel sounds Back: no vertebral tenderness, no CVAT Extremities: Patient has left lower extremity from the foot to just below the knee is swollen in his a proximally 1-1/2 times the size of the right lower extremity. There is erythema extending from the ankle to just below the knee which is warm to the touch, he has trace pitting edema bilaterally. There is a V shaped wounds of the left lateral calf consistent with a his history of of an injury from his bed frame. Neuro: Awake, alert, oriented, normal speech, cranial nerves intact, moves all extremities symmetrically Psych: Pleasant, cooperative Medications Administered Discontinued Medications Generic Name Dose Route Start Last Admin Trade Name Freq PRN Reason Stop Dose Admin Sodium Chloride 1,000 mls @ 999 mls/hr 06/30/24 04:19 06/30/24 07:14 Ns IV 06/30/24 05:19 Infused .Q1H1M STA Infusion Iohexol 85 ml 06/30/24 05:53 06/30/24 05:54 Iohexol 350 Mg/Ml 100 Ml Infus..Btl IV 06/30/24 05:54 85 ml ONCE ONE Administration Medical Decision Making Medical Decision Making MDM Narrative: 63-year-old male with a history of bilateral beat neuropathy who presents emergency department for evaluation of swelling, redness increased warmth of the left lower extremity. Patient states that his left foot was swollen a proximally 1 month ago. Patient states that he accidentally scraped his left lateral calf on his bed frame causing a small wound. He cleaned the wound and covered it with bacitracin. He states that over the last 2-3 days is left leg is become very swollen from the foot to just below the knee. He has also noted increased redness and increased warmth. Patient states that his last tetanus shot was 2 years prior. He denied fever but did have chills. He states that he has had an occasional nonproductive cough. He denied shortness of breath, dyspnea on exertion or orthopnea. He denied nausea, vomiting or diarrhea.The patient states he has not gone on any long trips. He has no history of hypercoagulability/blood clot. He has not been on antibiotics recently. He denies MRSA infection in the past.The patient states he does binge drink alcohol and will drink anywhere from 2-12 beers per week. States he does have a history of alcohol use disorder but he has cut down significantly. He denied drug use . Vital signs revealed an elevated blood pressure otherwise unremarkable. Patient's sclerae were icteric. The patient's left lower extremity did reveal significant swelling with erythema with increased warmth and a wound consistent with his description of injury from his bed frame. Differential diagnosis: ?Includes but is not limited to left lower extremity cellulitis, DVT, viral hepatitis , alcoholic hepatitis anemia, alcohol intoxication, electrolyte abnormalities, anemia Course: My independent interpretation patient's laboratory evaluation is as follows: WBC was normal 5300. Thrombocytopenia with a platelet count of 55,000 with thrombocytopenia noted on July 2023 with a platelet counts at that time of 64,000 and 112,000. AST and ALT were elevated 94 and 47. Alk-phos elevated 153. Bilirubin was elevated 5.6. These elevations are new compared to July 2023.ESR was normal at 2 and C-reactive protein was only slightly elevated 0.56. Ethanol was below detectable limits. Given these abnormalities I am concerned that the patient may have alcoholic hepatitis versus viral hepatitis, liver malignancy therefore I ordered a CT scan of the abdomen pelvis with IV contrast. The patient's left lower extremity is most likely consistent with cellulitis were given the significant swelling and did order a duplex ultrasound to rule out DVT. Patient's cellulitis was treated with Ancef 2 g IV. 08:27 Patient's duplex ultrasound of the left lower extremity revealed no DVT which is reassuring. CT scan of the abdomen pelvis revealed fatty infiltrates versus nonspecific hepatocellular pathology (possible cirrhosis) with no focal lesions, patient has splenomegaly and ascites. I did discuss the patient's presentation over tiger text with the covering hospitalist, Dr. Lew and the patient will be admitted for further treatment. Admission/Observation Consideration of admission/observation: Escalation of care including admission/observation considered (Yes) Lab Data 06/29/24 23:27 06/29/24 23:27 Labs: Lab Results 06/29/24 06/30/24 06/30/24 Range/Units 23: 05:18 07:55 WBC 5.3 (4.8-10.8) X10*3/uL RBC 4.46 L (4.60-5.80) X10*6/uL Hgb 14.4 (14.0-18.0) g/dl Hct 40.7 L (42.0-52.0) % MCV 91.3 (80.0-98.0) fL MCH 32.3 (27.0-33.0) pg MCHC 35.4 (31.0-36.0) g/dl RDW 15.1 (11.0-16.0) % Plt Count 55 L (160-400) X10*3/uL MPV 10.0 (9.4-12.4) fL Immature Gran % (Auto) 0.4 (0.0-0.4) % Neut % (Auto) 73.6 H (45-73) % Lymph % (Auto) 14.5 L (20-40) % [place] % (Auto) 10.3 (2-11) % Eos % (Auto) 0.8 (0-4) % Baso % (Auto) 0.4 (0-2) % Lymph # (Auto) 0.8 L (1.2-4.9) X10*3/uL [place] # (Auto) 0.5 (0.1-1.2) X10*3/uL Eos # (Auto) 0.0 (0.0-0.4) X10*3/uL Baso # (Auto) 0.0 (0.0-0.2) X10*3/uL Abs Immat Gran (auto) 0.02 (0.00-0.03) X10*3/uL Absolute Neuts (auto) 3.9 (2.0-8.3) x10*3/uL Absolute Nucleated RBC 0.000 (0.0-0.012) X10*3/uL Nucleated RBC % (auto) 0.0 (0.0-0.2) /100WBC Smear Tech's Comments VERIFIED ESR 2 (0-15) MM/HR PT 15.8 H (10.9-12.4) SEC INR 1.4 H (0.9-1.1) APTT 36.6 (26.0-36.8) SEC Sodium 139 (135-145) mmol/L Potassium 4.1 (3.3-5.1) mmol/L Chloride 103 (96-108) mmol/L Carbon Dioxide 27 (22-29) mmol/L Anion Gap 13 (12-20) BUN 5 L (9-16) mg/dL Creatinine 0.57 (0.5-1.4) mg/dL Estim Creat Clear Calc 167.4 Estimated GFR > 60 Random Glucose 133 H (60-115) mg/dL Calcium 8.8 (8.4-10.2) mg/dL Total Bilirubin 5.6 H (0.0-1.0) mg/dL AST 96 H (5-37) U/L ALT 47 H (0-40) U/L Alkaline Phosphatase 153 H (39-117) U/L C-Reactive Protein 0.56 H (< or = 0.50) mg/dL Total Protein 7.3 (6.5-8.0) g/dL Albumin 3.7 (3.5-5.0) g/dL Lipase 49 (8-78) U/L Urine Color Yellow Urine Appearance Clear Urine pH 8.0 (5.0-9.0) Ur Specific [place] 1.015 (1.005-1.025) Urine Protein Negative (Neg-Trace) mg/dL Urine Glucose (UA) Negative (Negative) mg/dL Urine Ketones Negative (Negative) mg/dL Urine Blood Negative (Negative) Urine Nitrite Negative (Negative) Ur Leukocyte Esterase Negative (Negative) Urine Opiates Screen Not Detected (Not Detect) Ur Buprenorphine Scrn Not Detected (Not Detect) ng/mL Ur Oxycodone Screen Not Detected (Not Detect) ng/mL Urine Methadone Screen Not Detected (Not Detect) ng/mL Urine Fentanyl Screen Not Detected (Not Detect) Ur Barbiturates Screen Not Detected (Not Detect) Ur Phencyclidine Scrn Not Detected (Not Detect) Ur Amphetamines Screen Not Detected (Not Detect) U Benzodiazepines Scrn Not Detected (Not Detect) Urine Cocaine Screen Not Detected (Not Detect) U Marijuana (THC) Screen Not Detected (Not Detect) Ethyl Alcohol < 10 mg/dL Radiology Impression Discussion of test interpretation with radiology: I have reviewed the radiologist's reading. Radiologist Impression: 3 views left foot Comparison: None Findings: There is dorsal soft tissue swelling. There is no evidence of subcutaneous gas or osteomyelitis. There is no fracture or dislocation. Joint spaces appear normal. There is no radiopaque foreign body. Impression: No acute osseous abnormality. This document has been electronically signed by: Macario Taylor MD on 06/29/2024 23:06:09 Venous duplex ultrasound left lower extremity Comparison: None Findings: The visualized deep veins are fully compressible with normal Doppler color flow and spectral tracings. No popliteal cyst. IMPRESSION: 1. Negative for left lower extremity deep vein thrombosis. This document has been electronically signed by: Isidro Thorpe MD on 06/30/2024 07:33:46 CT abdomen and pelvis with contrast Comparison: None. Findings: No consolidation or effusion. The appearance of the liver suggests fatty infiltration versus nonspecific hepatocellular pathology such as cirrhosis, with no focal lesion. The spleen measures 15.4 x 14.1 x 10.0 cm. There is pelvic ascites. Otherwise unremarkable gallbladder and solid organs. No urolithiasis. No bowel obstruction, pneumoperitoneum, or pneumatosis. Pelvic contents unremarkable. Normal appendix. No acute fracture. IMPRESSION: Hepatic steatosis versus cirrhosis with splenomegaly and ascites. This document has been electronically signed by: Isidro Thorpe MD on 06/30/2024 07:16:53 Discharge Plan Discharge Patient Disposition: Admitted As Inpatient Prescriptions: No Action multivitamin Tablet 1 tab PO DAILY amlodipine 5 mg tablet 5 mg PO DAILY aspirin 81 mg Tablet,Delayed Release (Dr/Ec) 81 mg PO DAILY milk thistle 150 mg Capsule 300 mg PO DAILY Rx Instructions: give with meal/snack gabapentin 100 mg capsule 100 mg PO BID fluoxetine 20 mg capsule 20 mg PO DAILY vitamin B complex Capsule 1 cap PO DAILY PRN (Reason: energy) magnesium 200 mg Tablet 200 mg PO DAILY acetaminophen 325 mg Tablet 650 mg PO Q6H PRN (Reason: Pain, Mild (Pain Scale 1-3), fever or headache) 30 Days Qty: 240 0RF Print Language: Thai
[2024-06-30 04:50] LABS: C Reactive Protein 0.56 mg/dL (< or = 0.50); Ethanol < 10 mg/dL; Lipase 49 U/L (8-78)
--- NOTE | 2024-06-30 05:25 | PC.NURSE ---
delay in ivf admin as pt was difficult stick for pct, getting blood drawn. iv established now and pt taken to ct scan.
[2024-06-30 05:42] LABS: INTERNATIONAL NORM RATIO 1.4 (0.9-1.1); Prothrombin Time 15.8 SEC (10.9-12.4)
[2024-06-30 05:44] LABS: Partial Thromboplastin Time 36.6 SEC (26.0-36.8)
[2024-06-30] MEDS: iohexoL 350 MG/ML 100 ML INFUS..BTL 85 ML IV (05:54)
[2024-06-30] MEDS: 0.9 % Sodium Chloride 1,000 ML 999 ML IV (06:00)
[2024-06-30 06:03] LABS: Erythrocyte Sedimentation Rate 2 MM/HR (0-15)
[2024-06-30 08:00] VITALS: BP 138/67; PULSE 80; RESP 16; TEMP 36.6; O2SAT 95
[2024-06-30 08:01] LABS: Appearance Urine Clear; Color Urine Yellow; Glucose Urine UA Negative (Negative); Leukocyte Esterase Urine Negative (Negative); Nitrite Urine Negative (Negative); Specific Gravity - Urine 1.015 (1.005-1.025); Urine Blood Negative (Negative); Urine Ketones Negative (Negative); Urine Protein Negative (Neg-Trace)
[2024-06-30 08:11] LABS: Amphetamine Screen Urine Not Detected (Not Detect); Barbiturates, Urine Not Detected (Not Detect); Benzodiazepines Screen Urine Not Detected (Not Detect); Buprenorphine Scr Not Detected (Not Detect); Cannabinoid Screen Urine Not Detected (Not Detect); Cocaine Screen Urine Not Detected (Not Detect); Fentanyl, urine Not Detected (Not Detect); Methadone Screen, Urine Not Detected (Not Detect); Opiate Screen Urine Not Detected (Not Detect); Oxycodone Screen Urine Not Detected (Not Detect); Phencyclidine Screen Urine Not Detected (Not Detect)
--- NOTE | 2024-06-30 09:12 | P.HPHOSP_ITS ---
History of Present Illness Date of Service: 06/30/24 Chief Complaint: Left leg swelling and redness, and laceration 63 year old male with HTN, chronic thrombocytopenia here with left leg swelling, and rednesss.. He reports bumping his leg into a bed and sustained a cut in the are (see picture). He has had some chronic swelling in the leg since mid may. He has no fever, WBC is normal , CRP is 0.56. US show no DVT, xray of foot no acute finding, LFTs are elevated and CTA of abdomen/pelvis, shows Hepatic steastosis and splenomegally. Review of Systems 2 Review of Systems: Gen: no fever Resp: no sob, no cough CV: no chest, no NEVAREZ, +left leg edema GI: No n/v, no abd pain Neuro: No confusion Yes all other systems are reviewed and are negative [facility] Social History (Updated 09/07/23 @ 14:19 by TRAE Stephens) Household Members: Spouse Housing: House Do you presently have visiting nurse or other home services: No Alcohol intake: current Alcohol intake frequency: does not drink Patient Tobacco Use Status: Never used Tobacco Smoked in Last 30 Days: No Second Hand Smoke Exposure: No Use of substances other than those prescribed or required for medical reasons: No Currently Displaying Signs/Symptoms of Drug Intoxication Withdrawal: No Have you been hit, kicked, punched, or otherwise hurt by someone within the past year? If so, by whom?: No Do you feel safe in your current relationship?: Yes Is there a partner from a previous relationship who is making you feel unsafe now?: No Are you made to feel afraid or neglected: No Advance Directives: No Advance Directives Information Provided: Yes Do you have a plan to hurt others: No Plan Recently lost weight without trying: No Eating poorly because of decreased appetite: No Nutrition Risks: No Nutritional Risk Poor oral hygiene: No service: No Current occupational status: unemployed Current occupation: rt handed Meds Allergies Allergy/AdvReac Type Severity Reaction Status Date / Time No Known Allergies Allergy Verified 06/29/24 22:10 Home Medications ?Medication ?Instructions ?Recorded ?Confirmed ?Last Taken ?Type amlodipine 5 mg tablet 5 mg PO DAILY 07/30/23 06/30/24 06/29/24 History aspirin 81 mg tablet,delayed 81 mg PO DAILY 07/30/23 06/30/24 07/27/23 History release fluoxetine 20 mg capsule 20 mg PO DAILY 07/30/23 06/30/24 06/29/24 History gabapentin 100 mg capsule 100 mg PO BID 07/30/23 06/30/24 06/29/24 History Physical Exam 2 Vital Signs and Narrative: Vital Signs: Last Vital Signs Temp 97.8 F 06/30/24 08:00 Pulse 80 06/30/24 08:00 Resp 16 06/30/24 08:00 BP 138/67 06/30/24 08:00 Pulse Ox 95 06/30/24 08:00 O2 Del Method Room Air 06/30/24 08:00 BMI result Body Mass Index 31.9 Const: Other: General: AO X 3, no acute distress Resp: CTA bilateral CVS: S1,S2,RRR GI: +BS, NT, no distention Skin: Neuro: motor grossly intact Psych: appropriate affect Results Labs 07/01/24 05:43 07/01/24 05:43 Labs: Laboratory Results - last 24 hr 06/29/24 06/30/24 06/30/24 23:27 05:18 07:55 MCV 91.3 MCH 32.3 MCHC 35.4 RDW 15.1 Plt Count 55 L MPV 10.0 Immature Gran % (Auto) 0.4 Neut % (Auto) 73.6 H Lymph % (Auto) 14.5 L [place] % (Auto) 10.3 Eos % (Auto) 0.8 Baso % (Auto) 0.4 Lymph # (Auto) 0.8 L [place] # (Auto) 0.5 Eos # (Auto) 0.0 Baso # (Auto) 0.0 Abs Immat Gran (auto) 0.02 Absolute Neuts (auto) 3.9 Absolute Nucleated RBC 0.000 Nucleated RBC % (auto) 0.0 Smear Tech's Comments VERIFIED ESR 2 PT 15.8 H INR 1.4 H APTT 36.6 Anion Gap 13 Estim Creat Clear Calc 167.4 Estimated GFR > 60 Random Glucose 133 H Calcium 8.8 Total Bilirubin 5.6 H AST 96 H ALT 47 H Alkaline Phosphatase 153 H C-Reactive Protein 0.56 H Total Protein 7.3 Albumin 3.7 Lipase 49 Urine Color Yellow Urine Appearance Clear Urine pH 8.0 Ur Specific [place] 1.015 Urine Protein Negative Urine Glucose (UA) Negative Urine Ketones Negative Urine Blood Negative Urine Nitrite Negative Ur Leukocyte Esterase Negative Urine Opiates Screen Not Detected Ur Buprenorphine Scrn Not Detected Ur Oxycodone Screen Not Detected Urine Methadone Screen Not Detected Urine Fentanyl Screen Not Detected Ur Barbiturates Screen Not Detected Ur Phencyclidine Scrn Not Detected Ur Amphetamines Screen Not Detected U Benzodiazepines Scrn Not Detected Urine Cocaine Screen Not Detected U Marijuana (THC) Screen Not Detected Ethyl Alcohol < 10 Assessment and Plan (1) Alcoholic hepatitis: Qualifiers: Ascites presence: with ascites Qualified Code(s): K70.11 - Alcoholic hepatitis with ascites Status: Acute (2) Liver cirrhosis: Qualifiers: Hepatic cirrhosis type: alcoholic cirrhosis Status: Acute Plan 63/m with HTN, chronic liver disease here with left leg cellulitis d/t an open Cellulitis of the left leg doxycycline and Ceftriaxone cultures pending HTN will change Norvasc to lisinopril given chronic leg edema Anxiety Fluoxetine Hepatic steatosis with mild elevated d/t alcoholic cirrhosis of liver Thrombocytopenia d/t splenomegally monitor, LFTs DVT prophylaxis, early ambulation, no heparin or lovenox d/t low platlets Quality Stroke Does the patient have a stroke diagnosis?: No VTE Prior VTE?: No VTE Risk Level:: Medical - low VTE Device Contraindication: Treatment Not Indicated VTE Drug Contraindication: N/A - Med Ordered
--- NOTE | 2024-06-30 09:24 | MHC.EDTECH ---
Patient offered to changed to hospital attire and patient refused stating he was comfortable how he was
[2024-06-30] MEDS: cefTRIAXone sodium 1 GM VIAL IVPUSH (09:51)
[2024-06-30] MEDS: Doxycycline Hyclate 100 MG in 0.9 % Sodium Chloride 250 ML 166.67 MG IV (09:51)
--- NOTE | 2024-06-30 09:57 | PC.NURSE ---
Rocephin given and doxy infusing per order by Dr. Carlos. Pt with transport to floor.
[2024-06-30 10:06] VITALS: BMI 31.9
[2024-06-30 10:23] VITALS: BP 149/75; PULSE 83; RESP 16; TEMP 36.9; O2SAT 95
--- NOTE | 2024-06-30 10:26 | PHA.MEDREC ---
Pharmacy Consult ? Medication Reconciliation Pharmacy has completed the medication reconciliation.Med rec complete, spoke with patient and compared with pharmacy claim history
[2024-06-30 15:30] VITALS: BP 155/74; PULSE 81; RESP 16; TEMP 37; O2SAT 94
[2024-06-30] MEDS: 0.9 % Sodium Chloride Flush 3 ML SYRINGE IVFLUSH ×2 (15:30→20:32)
[2024-06-30 19:29] VITALS: BP 149/72; PULSE 79; RESP 18; TEMP 36.9; O2SAT 94
[2024-06-30] MEDS: Gabapentin 100 MG CAPSULE PO (20:32)
[2024-06-30] MEDS: Melatonin 3 MG TABLET 6 MG PO (21:27)
[2024-06-30] MEDS: Doxycycline Hyclate 100 MG in 0.9 % Sodium Chloride 250 ML 166.61 MG IV (21:28)
[2024-07-01 03:02] VITALS: BP 161/71; PULSE 80; RESP 18; TEMP 36.7; O2SAT 95
[2024-07-01 06:58] LABS: Anion Gap 13 (12-20); Blood Urea Nitrogen 8 mg/dL (9-16); Calcium 8.5 mg/dL (8.4-10.2); Carbon Dioxide 21 mmol/L (22-29); Chloride 105 mmol/L (96-108); Creatinine Clr Calc Pharmacy 187.1; Estimated Glomerular Filt Rate > 60; Glucose Random 96 mg/dL (60-115); Potassium 3.9 mmol/L (3.3-5.1); Sodium 135 mmol/L (135-145)
[2024-07-01 07:10] LABS: Hemoglobin 13.2 g/dl (14.0-18.0); Mean Corpuscular HGB Conc 34.7 g/dl (31.0-36.0); Mean Corpuscular Hemoglobin 32.3 pg (27.0-33.0); Mean Corpuscular Volume 92.9 fL (80.0-98.0); Mean Platelet Volume 11.4 fL (9.4-12.4); Platelet Count 54 X10*3/uL (160-400); Red Blood Count 4.09 X10*6/uL (4.60-5.80); Red Cell Distribution Width 14.8 % (11.0-16.0); White Blood Count 4.5 X10*3/uL (4.8-10.8)
[2024-07-01 08:00] VITALS: BP 135/63; PULSE 83; RESP 16; TEMP 36.8; O2SAT 94
[2024-07-01] MEDS: Aspirin Enteric Coated 81 MG TABLET.DR PO (08:10)
[2024-07-01] MEDS: Gabapentin 100 MG CAPSULE PO (08:10)
[2024-07-01] MEDS: lisinopriL 10 MG TABLET PO (08:10)
[2024-07-01] MEDS: 0.9 % Sodium Chloride Flush 3 ML SYRINGE IVFLUSH (08:11)
[2024-07-01] MEDS: Furosemide 20 MG TABLET PO (08:11)
[2024-07-01] MEDS: FLUoxetine HCl 20 MG CAPSULE PO (08:11)
--- NOTE | 2024-07-01 09:29 | P.DS_ITS ---
DS: Providers Provider Date of Service: 07/01/24 Date of admission: 06/30/24 08:40 Date of discharge: 07/01/24 Primary care physician: Radha Walden MD DS: Diagnosis Discharge Diagnosis (1) Alcoholic hepatitis: Status: Acute (2) Liver cirrhosis: Status: Acute DS: Summary Hospital Course Hospital Course: admission hpi Chief Complaint: Left leg swelling and redness, and laceration 63 year old male with HTN, chronic thrombocytopenia here with left leg swelling, and rednesss.. He reports bumping his leg into a bed and sustained a cut in the are (see picture). He has had some chronic swelling in the leg since mid may. He has no fever, WBC is normal , CRP is 0.56. US show no DVT, xray of foot no acute finding, LFTs are elevated and CTA of abdomen/pelvis, shows Hepatic steastosis and splenomegally. hospital course: 63/m with HTN, chronic liver disease here with left leg cellulitis d/t an open sore Cellulitis of the left leg from scraping leg against bed, redness signficantly better with ceftriaxone and doxycline, swelling is expected to get better as he doesn't have chronic swelling in the leg likely related chronic venous insuficiency. US of the leg is negative for DVT. Will transition to oral Doxycline for 7 days. HTN, he is Norvasc which can be contributing to fluid retention, will change to lisinopril 10 and to follow up with PCP for further BP meds adjustment and should have BMP done in a week Anxiety Fluoxetine Hepatic steatosis with mild elevated LFT d/t alcoholic cirrhosis of liver with mild Ascietes which assymptomatic. Adding Lasix 20 mg daily, he will likely need additional med management such as aldactone, I also recommend outpatient GI follow up and strongly encouraged to avoid alcohol Thrombocytopenia d/t splenomegally from cirrhosis of liver, stalbl without bleeding complications Time Attestation Discharge Coordination Time (in mins): 45 Quality: Safe Use of Opioids Does Pt have an Active Cancer Diagnosis on the Problem List?: No Quality: Stroke Does the patient have a stroke diagnosis?: No Physical Exam 2 Vital Signs: Vital Signs: Last Vital Signs Temp 98.3 F 07/01/24 08:00 Pulse 83 07/01/24 08:00 Resp 16 07/01/24 08:00 BP 135/63 07/01/24 08:00 Pulse Ox 94 07/01/24 08:00 O2 Del Method Room Air 07/01/24 08:00 BMI result Body Mass Index 31.9 Const: Other: General: AO X 3, no acute distress Resp: CTA bilateral CVS: S1,S2,RRR GI: +BS, NT, no distention Skin: Neuro: motor grossly intact Psych: appropriate affect DS: Data Data Completed and Pending Completed studies during hospitalization [Text1]: Procedures Removal of Internal Fixation Device from Right Finger Phalanx, Open Approach (07/30/23) Reposition Right Finger Phalanx with Internal Fixation Device, Open Approach (07/30/23) Labs on day of discharge: Laboratory Results - last 24 hr 07/01/24 05:43 WBC 4.5 L RBC 4.09 L Hgb 13.2 L Hct 38.0 L MCV 92.9 MCH 32.3 MCHC 34.7 RDW 14.8 Plt Count 54 L MPV 11.4 Absolute Nucleated RBC 0.000 Nucleated RBC % (auto) 0.0 Sodium 135 Potassium 3.9 Chloride 105 Carbon Dioxide 21 L Anion Gap 13 BUN 8 L Creatinine 0.51 Estim Creat Clear Calc 187.1 Estimated GFR > 60 Random Glucose 96 Calcium 8.5 Preliminary micro results at discharge 06/30/24 05:18 Blood Culture - Preliminary Blood - Venous No growth after 24 hours. 06/30/24 05:10 Blood Culture - Preliminary Blood - Venous No growth after 24 hours. Discharge Plan Discharge Anticipated Discharge Date/Time: 07/01/24 11:59 Patient Disposition: Home, Self-Care Discharge Diagnosis: Cellulitis of the leg, cirrhosis of the liver, ascites Referrals: Radha Walden MD [Primary Care Provider] - 1 Week Discharge Medications: New lisinopril 10 mg Tablet 10 mg PO DAILY Qty: 90 0RF Protocol: Hold for SBP< HOLD for SBP < : 90 furosemide 20 mg Tablet 20 mg PO DAILY Qty: 90 0RF Protocol: Hold for SBP< HOLD for SBP < : 90 doxycycline hyclate 100 mg tablet 100 mg PO BID 6 Days Qty: 12 0RF Continued aspirin 81 mg Tablet,Delayed Release (Dr/Ec) 81 mg PO DAILY gabapentin 100 mg capsule 100 mg PO BID fluoxetine 20 mg capsule 20 mg PO DAILY Discontinued amlodipine 5 mg tablet 5 mg PO DAILY Discharge Orders: Discharge Order (Routine); Ordered 07/01/24 Ordered By: Jevon Carlos Diet: Advance to usual diet Activity on Discharge: As tolerated Stand Alone Forms: Patient Portal Discharge page Print Language: Kittitian Other Ambulatory Orders: Basic Metabolic Panel Fasting (Routine) Timeframe: 1 Week Facility: [facility] - Location: Laboratory Ordered By: Jevon Carlos Care Plan Goals: recovery from cellulitis of the leg Health Concerns: cellulitis of the leg cirrhosis of the liver splenomegally Plan of Treatment: take doxycline as recommended and follow up with yor doctor within a week lasix is added to your medication to control ascietes avoid alcohol Fro paronychia (infected finger), soak the finger in warm water 3 to 4 times daily for 15--20 mintues Ok to apply bacitracin Your blood pressure medication Norvasc is replaced with Lisinopril and Lasix You need lab work done in a week Assessment: see above
[2024-07-01] MEDS: Doxycycline Hyclate 100 MG in 0.9 % Sodium Chloride 250 ML 166.67 MG IV (09:34)
--- NOTE | 2024-07-01 10:24 | MHC.CM.PN ---
Addendum entered by Saida Ghotra 07/01/24 12:13: PT CLEARED TO DC HOME TODAY BROTHER WILL TRANSPORT Original Note: PT REPORTS HE LIVES WITH HIS GIRLFRIEND AND IS INDEPENDENT WITH CARE HE HAS NO DME AND NO SERVICES HE IS NOT INTERESTED IN COMPLETING A HCP PCP: CAMILLE WHITTEN PT UNDERSTANDS HIS INSURANCE IS COMING UP INACTIVE AND A REFERRAL WAS MADE TO [facility] [place] [facility] DCP: HOME VIA PRIVATE TRANSPORT
[2024-07-01] MEDS: cefTRIAXone sodium 1 GM VIAL IVPUSH (11:09)
--- NOTE | 2024-07-01 12:16 | PC.NURSE ---
Patient left the unit without discharge paperwork
--- NOTE | 2024-07-01 12:18 | PC.NURSE ---
Pt left the unit without taking his paperwork. Contact called and she will contact patient to come back to the unit to get discharge paperwork. Security notified.
--- NOTE | 2024-07-01 12:26 | PC.NURSE ---
patient came back to the unit.
[2024-07-02 08:03] LABS: HBS Num1 0.02 mIU/mL (0-7.99); HBc Num1 0.19 S/CO (0.00-0.79); HBsAGNum1 0.32 S/CO (0.00-0.99); Hepatitis A Antibody IgM 0.16 Index (0-0.79); Hepatitis B Core Antibody Nonreactive (Nonreactive); Hepatitis B Surface Antigen Negative (Negative); ~HepC Num1 0.37 S/CO (0.00-0.79); ~Hepatitis A Antibody IgM Nonreactive (Nonreactive); ~Hepatitis B Surface Antibody NONREACTIVE (Nonreactive); ~Hepatitis C Antibody Nonreactive (Nonreactive)
== END 2024-07-01 12:30 | disposition home or self-care (01) | DRG 383 ==
LOC: HO.ED 06-30 08:46 → HO.EDOVER 06-30 08:58 → HO.S3 06-30 09:05
PROVIDERS: Admitting Provider Internal Medicine; Emergency Provider Emergency Medicine Emergency Medical Services; PCP Family Medicine; Visit Provider Internal Medicine
DX: L03.116 Cellulitis of left lower limb (principal); K70.31 Alcoholic cirrhosis of liver with ascites; D69.59 Other secondary thrombocytopenia; F10.90 Alcohol use, unspecified, uncomplicated; G62.9 Polyneuropathy, unspecified; F41.9 Anxiety disorder, unspecified; I10 Essential (primary) hypertension; Z79.82 Long term (current) use of aspirin; Z79.899 Other long term (current) drug therapy
CPT/HCPCS: 36415; 73630; 74177; 80048; 80053; 80307; 81003; 83690; 85025; 85027; 85610; 85652; 85730; 86140; 86704; 86706; 86709; 86803; 87040; 87340; 93971; 99285; J0696; J1271; Q9967

== ENCOUNTER → 2024-06-29 22:25 | Outpatient (BNV) | payer OTHER, SELFPAY | PROVIDERS: PCP Family Medicine; Visit Provider Radiology Diagnostic Radiology | DX: R22.42 Localized swelling, mass and lump, left lower limb (principal) | CPT/HCPCS: 73630 ==

== ENCOUNTER → 2024-06-30 04:19 | Outpatient (BNV) | payer OTHER, SELFPAY | PROVIDERS: Emergency Provider Emergency Medicine Emergency Medical Services; PCP Family Medicine; Visit Provider Specialist | DX: R16.1 Splenomegaly, not elsewhere classified (principal); R18.8 Other ascites; R22.42 Localized swelling, mass and lump, left lower limb; K76.0 Fatty (change of) liver, not elsewhere classified | CPT/HCPCS: 74177; 93971 ==

== ENCOUNTER → 2024-06-30 08:40 | Outpatient (BNV) | payer MEDICAID, SELFPAY | PROVIDERS: Admitting Provider Internal Medicine; Emergency Provider Emergency Medicine Emergency Medical Services; PCP Family Medicine; Visit Provider Internal Medicine | DX: K70.11 Alcoholic hepatitis with ascites (principal); K74.60 Unspecified cirrhosis of liver | CPT/HCPCS: 99223; 99239 ==

== ENCOUNTER 2024-07-09 11:14 | Outpatient (REF) | payer OTHER, SELFPAY ==
[2024-07-09 12:48] LABS: Anion Gap 9 (12-20); Blood Urea Nitrogen 8 mg/dL (9-16); Calcium 8.9 mg/dL (8.4-10.2); Carbon Dioxide 26 mmol/L (22-29); Chloride 105 mmol/L (96-108); Estimated Glomerular Filt Rate > 60; Glucose Fasting 106 mg/dL (60-99); Potassium 4.3 mmol/L (3.3-5.1); Sodium 136 mmol/L (135-145)
== END 2024-07-09 11:15 | disposition home or self-care (01) ==
LOC: HO.LAB 11:14
PROVIDERS: PCP Family Medicine; Visit Provider Internal Medicine
DX: I10 Essential (primary) hypertension (principal)
CPT/HCPCS: 36415; 80048